=== PATIENT | male | born 1950 | race Caucasian/White ===

== ENCOUNTER → 2016-06-18 | Outpatient (CLI) | payer MEDICARE, OTHER ==
[~2016-06-18] MED LIST: /ADVA50050; ADV250INH INH; ASPI1TAB PO; DARV100T; DHEA50CA4 PO; ECOT325T5; FEOSOL; FURO40TA2; IBUP800T23 PO; LEVO750T33 PO; MEGA RED; MUCINEX DM; NEXI20CA; NEXI20CA PO; POTA20TA2; PRED10TA PO; PROP10TAB; PROP80TA PO; TIOT18INH INH; TRAM37.53 PO; dhea
--- NOTE | 2016-06-18 13:33 | REP ---
CHEST, TWO VIEW: Two views of the chest is performed and compared to a prior study of 11/08/2015. Significant bibasilar fibrotic change is stable. No definite superimposed acute infiltrate is seen. There is mild biapical pleural thickening. The heart is not significantly enlarged. There is mild calcification of the thoracic aorta. The mediastinal silhouette is unchanged. There is elevation of the right hemidiaphragm unchanged. There are mild degenerative changes of the spine. IMPRESSION: Stable chronic fibrotic changes with no evidence of acute infiltrate or pulmonary edema. Signed by Mehdi Shrestha MD 06/18/2016 05:04 P
== END | disposition home or self-care (01) ==
LOC: M SMT 11:32
PROVIDERS: ATTEND Internal Medicine Pulmonary Disease
DX: J44.9 Chronic obstructive pulmonary disease, unspecified (principal); J98.4 Other disorders of lung

== ENCOUNTER → 2016-12-06 | Outpatient (CLI) | payer MEDICARE, OTHER ==
[~2016-12-06] MED LIST changes: +ALBU83IN INH; +ATOR1TAB21 PO; +AVEL1TAB3 PO; +CEFT500T3 PO; +CIAL5TAB PO; +COMBAER6 INH; +GABA-279 PO; +GABA-283 PO; +IBUP1TAB7 PO; -IBUP800T23 PO; +INCR1INH INH; +LEVO750T13 PO; -LEVO750T33 PO; +LOSA25TA8 PO; +NEBUMIS2 XX; +PRED20TA PO; +PROP80CA PO; +SELE200T PO; +VITA400C7 PO
--- NOTE | 2016-12-06 12:29 | REP ---
CT STUDY OF THE CHEST WITHOUT IV CONTRAST: HISTORY: COPD. Comparison chest CT study is from February 01, 2015. CT FINDINGS: There are advanced changes of COPD with interstitial fibrosis most pronounced in the lower lobes but also extensively seen in the upper lobes with emphysematous bullous formation and some scattered bronchiectasis. These findings are essentially unchanged. There are some linear fibrotic changes again noted in the right upper lobe. There is a 13 x 6 mm elongate nodular density in the right upper lobe again seen. Previous dimensions were measured at 5 x 11 mm but I do not believe this has changed. No new infiltrate is seen. No pleural or pericardial effusion is seen. No hilar or mediastinal mass or adenopathy is observed. Vascular calcification is again seen. No adrenal lesion is seen. There are granulomatous calcifications scattered in the spleen as before. IMPRESSION: Severe COPD changes. Stable nodular soft tissue density right upper lobe. Current dimensions 6 x 13 mm. Signed by Sean Arambula MD 12/06/2016 12:58 P
== END ==
LOC: M RAD 10:47
PROVIDERS: ATTEND Internal Medicine Pulmonary Disease
DX: J44.9 Chronic obstructive pulmonary disease, unspecified (principal); R91.8 Other nonspecific abnormal finding of lung field

== ENCOUNTER → 2017-02-07 | Outpatient (CLI) | payer MEDICARE, OTHER ==
--- NOTE | 2017-02-07 11:15 | REP ---
Clinical: Multiple cerebral infarcts and history of carotid atherosclerotic disease by prior examination. Technique: Shrestha scale and color Doppler evaluation using linear high frequency transducer. Comparison: 03/10/2015 Findings: Two-dimensional shrestha scale and color images demonstrate a moderate amount of mixed atheromatous plaque along the bilateral common carotid arteries extending to the carotid bulbs and proximal internal carotid arteries (right greater than left). Visible narrowing through the carotid bulbs, internal carotid arteries (right greater than left) and left external carotid artery are appreciated. Color Doppler interrogation demonstrates normal arterial wave patterns and velocities with areas of mild spectral broadening. Normal flow direction is appreciated in the bilateral vertebral arteries. RIGHT (cm/s) LEFT (cm/s) ICA peak systolic velocity 73.6 74.7 ICA diastolic velocity 17.5 32.0 ECA peak systolic velocity 104.0 113 CCA peak systolic velocity 91.5 105 ICA/CCA ratio 0.80 0.71 Impression: 1. Based on set standards narrowing again falls within the less than 50% range, and subjectively by visual inspection approaches 50% in the right proximal internal carotid artery as well as left external carotid artery. 2. In direct comparison with prior examination of 2014, atheromatous plaquing appears to be slightly increased. Signed by Uvaldo Hart MD 02/07/2017 11:06 A
== END ==
LOC: M RAD 09:25
PROVIDERS: ATTEND Physician Assistant Medical
DX: I65.23 Occlusion and stenosis of bilateral carotid arteries (principal)

== ENCOUNTER 2017-03-27 14:08 | Emergency (ER) | payer MEDICARE, OTHER ==
[~2017-03-27] VITALS: Ht 172.7 cm; Wt 73.8 kg
[~2017-03-27 14:08] MED LIST changes: -ALBU83IN INH; -ATOR1TAB21 PO; -AVEL1TAB3 PO; -CEFT500T3 PO; -CIAL5TAB PO; -COMBAER6 INH; -GABA-279 PO; -GABA-283 PO; -INCR1INH INH; -LOSA25TA8 PO; -NEBUMIS2 XX; -PRED20TA PO; -PROP80CA PO; -SELE200T PO; -VITA400C7 PO
[2017-03-27] MEDS ORDERED: CIAL5TAB PO (14:34)
[2017-03-27] MEDS ORDERED: COMBAER6 INH (14:34)
[2017-03-27] MEDS ORDERED: LOSA25TA8 PO (14:34)
[2017-03-27] MEDS ORDERED: INCR1INH INH (14:34)
[2017-03-27] MEDS ORDERED: ATOR1TAB21 PO (14:34)
[2017-03-27] MEDS ORDERED: GABA-283 PO (14:34)
[2017-03-27 15:12] LABS: ABG BASE EXCESS -4.2 (-2.0-2.0); ABG HCO3 18.4 MEQ/L (22.0-26.0); ABG PARTIAL PRESSURE CO2 27.7 mmHg (35.0-45.0); ABG PARTIAL PRESSURE O2 76.6 mmHg (75.0-100.0); ABG STANDARD HCO3 20.9 MEQ/L (22.0-26.0); ABG TOTAL CO2 19.3 MEQ/L (23.0-31.0); ABG pH (ARTERIAL) 7.441 UNITS (7.350-7.450)
[2017-03-27] MEDS ORDERED: IPRATROPIUM 0.5MG/ALBUTEROL 2.5MG INH SOL UD 3ML (DUONEB)(J7620) NEB PRN (15:15)
[2017-03-27] MEDS ORDERED: methylPREDNISolone INJ 125 MG/2 ML VIAL (J2930) IV ONE (15:15)
--- NOTE | 2017-03-27 15:22 | REP ---
PORTABLE CHEST: AP portable view of the chest is performed and compared to prior study of 06/18/2016. Significant bibasilar fibrotic changes appear essentially stable. There is no definite superimposed acute infiltrate. There is a more mild degree of fibrotic change in the upper lobes bilaterally. The cardiomediastinal silhouette is unchanged. IMPRESSION: Stable chronic findings without evidence of superimposed acute infiltrate. Signed by Mehdi Shrestha MD 03/28/2017 07:26 P
[2017-03-27 15:56] LABS: BASO % 0.2 % (0.0-1.0); EOS # 0.3 10^3/uL (0.0-0.50); EOS % 2.3 % (0.0-3.0); IMMATURE GRANULOCYTE % 0.3 % (0-0); LYMPH # 1.5 10^3/uL (1.5-4.5); LYMPH % 12.1 % (24.0-44.0); MEAN CORPUSCULAR HEMOGLOBIN 28.9 pg (27.0-33.0); MEAN CORPUSCULAR HGB CONC 34.4 g/dl (32.0-36.5); MONO # 1.1 10^3/uL (0.0-0.8); NEUTROPHILS # 9.5 10^3/uL (1.8-7.7); NEUTROPHILS % 76.1 % (36.0-66.0); PLATELET COUNT, AUTOMATED 313 10^3/uL (150-450); RED CELL DISTRIBUTION WIDTH 13.8 % (11.5-14.5); WHITE BLOOD COUNT 12.4 10^3/uL (4.0-10.0)
[2017-03-27 16:07] LABS: INR 0.99
[2017-03-27] MEDS ORDERED: LEVALBUTEROL 1.25 MG/0.5 ML CONCENTRATE NEB NEB PRN (16:30)
[2017-03-27 16:40] LABS: ALBUMIN 3.5 GM/DL (3.2-5.2); ALBUMIN/GLOBULIN RATIO 0.85 (1.00-1.93); ALKALINE PHOSPHATASE 112 U/L (45-117); ALT/SGPT 20 U/L (12-78); ANION GAP 8 MEQ/L (8-16); AST/SGOT 17 U/L (7-37); BILIRUBIN,DIRECT 0.1 MG/DL (0.0-0.2); BILIRUBIN,TOTAL 0.4 MG/DL (0.2-1.0); BLOOD UREA NITROGEN 13 MG/DL (7-18); CARBON DIOXIDE LEVEL 25 MEQ/L (21-32); CHLORIDE LEVEL 91 MEQ/L (98-107); CREATININE FOR GFR 0.82 MG/DL (0.70-1.30); GLOMERULAR FILTRATION RATE > 60.0 (>49); GLUCOSE, FASTING 102 MG/DL (80-110); POTASSIUM SERUM 4.5 MEQ/L (3.5-5.1); SODIUM LEVEL 124 MEQ/L (136-145); TOTAL PROTEIN 7.6 GM/DL (6.4-8.2)
[2017-03-27] MEDS ORDERED: VITA400C7 PO (17:02)
[2017-03-27] MEDS ORDERED: GABA-279 PO (17:02)
[2017-03-27] MEDS ORDERED: SELE200T PO (17:02)
[2017-03-27] MEDS ORDERED: PROP80CA PO (17:02)
[2017-03-27] MEDS ORDERED: AVEL1TAB3 PO (17:10)
[2017-03-27] MEDS ORDERED: ALBU83IN INH (17:10)
[2017-03-27] MEDS ORDERED: PRED20TA PO (17:10)
[2017-03-27] MEDS ORDERED: NEBUMIS2 XX (17:11)
[2017-03-27] MEDS ORDERED: CEFT500T3 PO (17:18)
[2017-03-27] MEDS ORDERED: AZITHROMYCIN INJ 500 MG, VIAL MATE ADAPTER 1 EACH in D5W 250 ML IV SCH (18:00)
[2017-03-27 18:08] VITALS: BP 167/75
[2017-03-27] MEDS ORDERED: LEVALBUTEROL 1.25 MG/0.5 ML CONCENTRATE NEB NEB SCH (20:00)
[2017-03-28] MEDS ORDERED: methylPREDNISolone INJ 125 MG/2 ML VIAL (J2930) IV SCH
[2017-03-28] MEDS ORDERED: PANTOPRAZOLE 40MG TAB (PROTONIX) PO SCH (09:00)
--- NOTE | 2017-03-28 11:24 | ECGEPIP ---
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
== END 2017-03-27 18:10 | disposition home or self-care (01) ==
LOC: M ED 14:08 → M ED INP 16:28 → UNDOADMIN 16:28 → UNDODISIN 17:30
DX: J44.9 Chronic obstructive pulmonary disease, unspecified (principal); J40 Bronchitis, not specified as acute or chronic; E87.1 Hypo-osmolality and hyponatremia; I27.20 Pulmonary hypertension, unspecified; E78.5 Hyperlipidemia, unspecified; Z79.82 Long term (current) use of aspirin; Z79.899 Other long term (current) drug therapy; Z91.041 Radiographic dye allergy status; Z88.5 Allergy status to narcotic agent; Z91.040 Latex allergy status; Z85.118 Personal history of other malignant neoplasm of bronchus and lung; Z98.890 Other specified postprocedural states; Z92.21 Personal history of antineoplastic chemotherapy
CPT/HCPCS: 36600; 71010; 80048; 80076; 82550; 82553; 82803; 83605; 83880; 84436; 84443; 84484; 85025; 85610; 87040; 87486; 87581; 87633; 87798; 87804; 93005; 93041; 94640; 96374; 99285; J2930

== ENCOUNTER → 2017-07-09 | Outpatient (CLI) | payer MEDICARE, OTHER | LOC: M SMT 11:26 | DX: J84.10 Pulmonary fibrosis, unspecified (principal); J44.9 Chronic obstructive pulmonary disease, unspecified; R91.8 Other nonspecific abnormal finding of lung field | CPT/HCPCS: 71046 ==

== ENCOUNTER 2017-09-04 11:55 | Outpatient (RCR) | payer MEDICARE, OTHER | END 2017-09-23 | LOC: M PR 11:55 | DX: Z51.89 Encounter for other specified aftercare (principal); J84.112 Idiopathic pulmonary fibrosis | CPT/HCPCS: G0424 ==

== ENCOUNTER 2017-09-26 14:32 | Outpatient (RCR) | payer MEDICARE, OTHER | END 2017-10-24 | LOC: M PR 14:32 | DX: Z51.89 Encounter for other specified aftercare (principal); J84.112 Idiopathic pulmonary fibrosis | CPT/HCPCS: G0424 ==

== ENCOUNTER 2017-10-28 12:22 | Outpatient (RCR) | payer MEDICARE, OTHER | END 2017-11-23 | LOC: M PR 12:22 | DX: Z51.89 Encounter for other specified aftercare (principal); J84.112 Idiopathic pulmonary fibrosis | CPT/HCPCS: G0424 ==

== ENCOUNTER 2017-11-25 13:12 | Outpatient (RCR) | payer MEDICARE, OTHER | END 2017-12-24 | LOC: M PR 13:12 | DX: Z51.89 Encounter for other specified aftercare (principal); J84.112 Idiopathic pulmonary fibrosis | CPT/HCPCS: G0424 ==

== ENCOUNTER 2017-12-30 10:03 | Outpatient (RCR) | payer MEDICARE, OTHER | END 2018-01-24 | LOC: M PR 10:03 | DX: J84.112 Idiopathic pulmonary fibrosis (principal) | CPT/HCPCS: G0424 ==

== ENCOUNTER 2018-02-06 11:16 | Outpatient (RCR) | payer MEDICARE, OTHER | END 2018-02-23 | LOC: M PR 11:16 | DX: Z51.89 Encounter for other specified aftercare (principal); J84.112 Idiopathic pulmonary fibrosis | CPT/HCPCS: G0424 ==

== ENCOUNTER 2018-08-18 13:30 | Outpatient (RCR) | payer MEDICARE, OTHER ==
[~2018-08-18 13:30] MED LIST changes: +ALBU83IN INH; +APAP325T4 PO; +ATOR1TAB21 PO; +AVEL1TAB3 PO; +AZIT-10; +AZIT-12 PO; +BACT400T PO; +BETA2500 PO; +CEFT500T3 PO; +CENT1TAB PO; +CIAL5TAB PO; +COMBAER6 INH; +ECHI380C PO; +FOLI800C PO; +GABA-1171 PO; +GABA-845 PO; +IMUR50TA7 PO; +INCR1INH INH; +LASI20TA3 PO; +LOPR1TAB6 PO; +LOSA25TA14 PO; +MAGN200T PO; +MUCI30TA5 PO; +NEBUMIS2 XX; +NEUR100C PO; +PRED20TA PO; +PRED5PAK PO; +PROP80CA PO; +PROTPAK PO; +SELE200T PO; +TACR0.5C3 PO; +TUMS500C PO; +VALG1TAB PO; +VITA-110 PO; +VITA400C7 PO; +VITA500T PO; +ZOFR8TAB24 PO; +[UNRECOGNIZED DRUG - OTHER]
== END 2018-08-24 ==
LOC: M PR 13:30
PROVIDERS: ATTEND Internal Medicine Pulmonary Disease
DX: Z94.2 Lung transplant status (principal)
CPT/HCPCS: G0424 ×4

== ENCOUNTER 2018-09-15 12:52 | Outpatient (RCR) | payer MEDICARE, OTHER ==
[~2018-09-15 12:52] MED LIST changes: -/ADVA50050; +ADVA1AER2; -ASPI1TAB PO; +ASPI81TA26 PO; +IMUR50TA10 PO; -IMUR50TA7 PO; +PRED-351 PO; -PRED10TA PO
== END 2018-09-23 ==
LOC: M PR 12:52
PROVIDERS: ATTEND Internal Medicine Pulmonary Disease
DX: Z94.2 Lung transplant status (principal)
CPT/HCPCS: G0424 ×4

== ENCOUNTER 2018-09-25 09:34 | Outpatient (RCR) | payer MEDICARE, OTHER | END 2018-10-24 | LOC: M PR 09:34 | PROVIDERS: ATTEND Internal Medicine Pulmonary Disease | DX: Z94.2 Lung transplant status (principal) ==

== ENCOUNTER 2018-10-03 14:27 | Emergency (ER) | payer MEDICARE, OTHER ==
[~2018-10-03] VITALS: Ht 172.7 cm; Wt 79.1 kg
[2018-10-03 16:03] LABS: HEMOGLOBIN 8.9 g/dl (13.5-17.5); MEAN CORPUSCULAR HEMOGLOBIN 32.7 pg (27.0-33.0); MEAN CORPUSCULAR VOLUME 99.3 fl (80.0-96.0); PLATELET COUNT, AUTOMATED 284 10^3/uL (150-450); RED BLOOD COUNT 2.72 10^6/uL (4.30-6.10); WHITE BLOOD COUNT 4.2 10^3/uL (4.0-10.0)
[2018-10-03 16:20] LABS: INR 0.97
[2018-10-03 16:24] LABS: ALBUMIN 3.4 GM/DL (3.2-5.2); ALT/SGPT 32 U/L (12-78); BILIRUBIN,DIRECT < 0.1 MG/DL (0.0-0.2); BILIRUBIN,TOTAL 0.3 MG/DL (0.2-1.0); BLOOD UREA NITROGEN 31 MG/DL (7-18); CALCIUM LEVEL 8.3 MG/DL (8.8-10.2); CARBON DIOXIDE LEVEL 21 MEQ/L (21-32); CHLORIDE LEVEL 101 MEQ/L (98-107); CPK CREATINE PHOSPHOKINASE 61 U/L (39-308); CREATININE FOR GFR 1.82 MG/DL (0.70-1.30); GLOMERULAR FILTRATION RATE 39.5 (>49); GLUCOSE, FASTING 159 MG/DL (70-100); MB/CK RELATIVE INDEX 2.79 (< OR =4); NT-PRO BNP 1621 PG/ML (<125); POTASSIUM SERUM 5.3 MEQ/L (3.5-5.1); SODIUM LEVEL 130 MEQ/L (136-145); TOTAL PROTEIN 6.5 GM/DL (6.4-8.2); TROPONIN I < 0.02 NG/ML (< 0.10)
[2018-10-03 16:48] LABS: ABG BASE EXCESS -6.6 (-2.0-2.0); ABG O2 SATURATION 98.4 % (95.0-99.0); ABG PARTIAL PRESSURE CO2 32.3 mmHg (35.0-45.0); ABG PARTIAL PRESSURE O2 217.2 mmHg (75.0-100.0); ABG pH (ARTERIAL) 7.363 UNITS (7.350-7.450)
[2018-10-03 16:51] LABS: ATYPICAL LYMPH 1 % (0-5); LYMPHOCYTES 14 % (16-52); METAMYELOCYTES 1 % (0-0); NEUTROPHILS 79 % (35-75)
[2018-10-03 16:52] LABS: DOHLE BODIES 1+
[2018-10-03 16:54] LABS: PLATELET ESTIMATE NORMAL (NORMAL)
--- NOTE | 2018-10-03 17:10 | REP ---
CT CHEST WITHOUT IV CONTRAST: CT chest performed without IV contrast. Sagittal and coronal reconstruction images are performed. There are scattered fibroatelectatic changes bilaterally without consolidating infiltrate. Multiple sternal wires and mediastinal clips are present. No axillary or mediastinal adenopathy is seen. There is mild left-sided pleural thickening. No significant pericardial or pleural effusion is seen. Heart is upper limits of normal in size. There is calcification of the thoracic aorta without aneurysm. Coronary artery calcifications are seen. A couple of small gallstones are seen in the gallbladder. Calcified granulomas are seen in the spleen. There are degenerative changes of the spine. IMPRESSION: Bilateral fibroatelectatic changes. Postsurgical changes. No acute pulmonary disease. Electronically Signed by Mehdi Shrestha MD 10/08/2018 11:47 A
[2018-10-03 17:58] LABS: BASO % 0.5 % (0.0-1.0); EOS % 0.2 % (0.0-3.0); LYMPH # 0.5 10^3/uL (1.5-4.5); LYMPH % 10.8 % (24.0-44.0); MONO # 0.1 10^3/uL (0.0-0.8); NEUTROPHILS # 2.8 10^3/uL (1.8-7.7); NEUTROPHILS % 66.5 % (36.0-66.0)
[2018-10-03 18:03] LABS: FERRITIN 980 NG/ML (26-388); IRON (FE) 30 UG/DL (65-175); PERCENT SATURATION 7.1 % (19.7-50.0); TOTAL IRON BINDING CAPACITY 420 UG/DL (250-450)
[2018-10-03 18:30] VITALS: BP 148/70
--- NOTE | 2018-10-03 19:24 | ECGEPIP ---
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
== END 2018-10-03 18:55 | disposition left against medical advice (07) ==
LOC: M ED 14:27
DX: D64.9 Anemia, unspecified (principal); N18.9 Chronic kidney disease, unspecified; R06.00 Dyspnea, unspecified; I27.20 Pulmonary hypertension, unspecified; J44.9 Chronic obstructive pulmonary disease, unspecified; Z79.82 Long term (current) use of aspirin; Z79.51 Long term (current) use of inhaled steroids; Z79.899 Other long term (current) drug therapy; Z87.891 Personal history of nicotine dependence; Z94.2 Lung transplant status; Z88.5 Allergy status to narcotic agent; Z91.040 Latex allergy status; Z91.041 Radiographic dye allergy status; Z53.21 Procedure and treatment not carried out due to patient leaving prior to being seen by health care provider

== ENCOUNTER → 2018-10-03 | Outpatient (CLI) | payer MEDICARE, OTHER ==
--- NOTE | 2018-10-03 11:39 | REP ---
Chest x-ray: Two views. History: Shortness of breath. Comparison chest x-ray: July 09, 2017. Findings: The patient is status post prior sternotomy. There are mediastinal clips bilaterally. Post thoracotomy changes are noted on the right. Pleural thickening is noted bilaterally. The previously noted interstitial edema/infiltrate pattern has resolved. Mild fibrotic changes are noted. The heart is not enlarged. The pleural angles are sharp. Impression: Post thoracotomy changes. Pleuroparenchymal fibrosis. Otherwise no acute disease. Electronically Signed by Sean Arambula MD 10/03/2018 02:47 P
== END ==
LOC: M SMT 10:55
PROVIDERS: ATTEND Internal Medicine Pulmonary Disease
DX: J84.10 Pulmonary fibrosis, unspecified (principal); R06.02 Shortness of breath

== ENCOUNTER 2018-11-17 13:31 | Outpatient (RCR) | payer MEDICARE, OTHER | END 2018-11-23 | LOC: M PR 13:31 | PROVIDERS: ATTEND Internal Medicine Pulmonary Disease | DX: Z94.2 Lung transplant status (principal) | CPT/HCPCS: G0424 ×5 ==

== ENCOUNTER 2018-12-07 01:27 | Emergency (ER) | payer OTHER, MEDICARE ==
[~2018-12-07] VITALS: Ht 172.7 cm; Wt 72.1 kg
[2018-12-07 02:12] LABS: HEMATOCRIT 23.8 % (42.0-52.0); HEMOGLOBIN 8.3 g/dl (13.5-17.5); LYMPH # 0.3 10^3/uL (1.5-4.5); LYMPH % 39.1 % (24.0-44.0); MEAN CORPUSCULAR HEMOGLOBIN 32.4 pg (27.0-33.0); MEAN CORPUSCULAR HGB CONC 34.9 g/dl (32.0-36.5); MONO % 5.8 % (0.0-5.0); PLATELET COUNT, AUTOMATED 192 10^3/uL (150-450); RED BLOOD COUNT 2.56 10^6/uL (4.30-6.10)
[2018-12-07 02:15] LABS: NEUTROPHILS # 0.3 10^3/uL (1.8-7.7); WHITE BLOOD COUNT 0.7 10^3/uL (4.0-10.0)
[2018-12-07] MEDS ORDERED: IPRATROPIUM 0.5MG/ALBUTEROL 2.5MG INH SOL UD 3ML (DUONEB)(J7620) NEB ONE (02:15)
[2018-12-07 02:36] LABS: BLOOD UREA NITROGEN 42 MG/DL (7-18); CALCIUM LEVEL 8.3 MG/DL (8.8-10.2); CARBON DIOXIDE LEVEL 21 MEQ/L (21-32); CHLORIDE LEVEL 95 MEQ/L (98-107); CK-MB VALUE MASS 1.8 NG/ML (<3.6); CPK CREATINE PHOSPHOKINASE 37 U/L (39-308); CREATININE FOR GFR 3.23 MG/DL (0.70-1.30); GLOMERULAR FILTRATION RATE 20.3 (>42); GLUCOSE, FASTING 98 MG/DL (70-100); MB/CK RELATIVE INDEX 4.86 (< OR =4); NT-PRO BNP 2563 PG/ML (<125); POTASSIUM SERUM 5.3 MEQ/L (3.5-5.1); SODIUM LEVEL 126 MEQ/L (136-145); TROPONIN I < 0.02 NG/ML (< 0.10)
--- NOTE | 2018-12-07 04:13 | REPVR ---
EXAM: CT Chest Without Contrast EXAM DATE/TIME: 12/07/2018 3:14 AM CLINICAL HISTORY: 68 years old, male; Cough and shortness of breath; Prior surgery; Surgery date: 6+ months; Surgery type: Double lung transplant mar 2018; Additional info: SOB, cough TECHNIQUE: Imaging protocol: Axial computed tomography images of the chest without intravenous contrast. Coronal and sagittal reformatted images were created and reviewed. 3D rendering: MIP reconstructed images were created and reviewed. Radiation optimization: All CT scans at this facility use at least one of these dose optimization techniques: automated exposure control; mA and/or kV adjustment per patient size (includes targeted exams where dose is matched to clinical indication); or iterative reconstruction. COMPARISON: CT Chest without contrast 10/03/2018 3:11 PM FINDINGS: Lungs: No minimal left upper lobe, lingular, right lower lobe and right middle lobe fibro-atelectatic change with mild left lower lobe atelectasis and minimal patchy infiltrates. Pleural space: Trace left pleural effusion. Heart: Unremarkable. No cardiomegaly. No pericardial effusion. Aorta: Unremarkable. No aortic aneurysm. Lymph nodes: Unremarkable. No enlarged lymph nodes. Bones/joints: Status post clamshell sternotomy. Soft tissues: Unremarkable. Gallbladder and bile ducts: There is a gallstone in the gallbladder measuring 6 mm. Spleen: Splenic calcifications. IMPRESSION: 1. Mild left lower lobe atelectasis and patchy infiltrate with trace left pleural effusion. 2. Minimal fibro-atelectatic change in the left upper lobe, lingula, right middle lobe and right lower lobe. 3. Minimal cholelithiasis. 4. Old granulomatous disease of the spleen. Electronically signed by: Richi Esquivel On 12/07/2018 04:12:40 AM
[2018-12-07] MEDS ORDERED: PIPERACILLIN/TAZOBACTAM SOD 2.25 GM in D5W MINI-BAG PLUS 50 ML IV ONE (05:15)
[2018-12-07] MEDS ORDERED: VANCOMYCIN HCL 1,000 MG, VIAL MATE ADAPTER 1 EACH in D5W 250 ML IV ONE (05:15)
--- NOTE | 2018-12-07 09:08 | REP ---
Portable chest x-ray: Single view. History: Dyspnea and cough. Comparison study: October 03, 2018. Findings: Sternal fracture fixation wires are again seen over the inferior sternum. There are surgical clips in the left chest post thoracotomy. Oxygen delivery tubing is seen. There is mild biapical pleural thickening which is unchanged. Bibasilar linear pleuroparenchymal fibrosis is seen also unchanged. No acute infiltrate is appreciated. Heart size is normal and unchanged. Impression: Posttraumatic and/or postsurgical changes. Bibasilar fibrosis. No acute infiltrate seen. Electronically Signed by Sean Arambula MD 12/07/2018 09:40 A
[2018-12-07] MEDS ORDERED: ACETAMINOPHEN TAB 650MG DOSE (2X325MG) PO ONE (10:00)
[2018-12-07] MEDS ORDERED: ACETAMINOPHEN TAB 650MG DOSE (2X325MG) As Ordered ONE (10:00)
[2018-12-07 10:54] VITALS: BP 126/61
--- NOTE | 2018-12-08 17:08 | ECGEPIP ---
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 Electronically Signed on 12-08-2018 17:07:53 EDT by Dav Valerio
== END 2018-12-07 11:01 | disposition short-term general hospital (02) ==
LOC: M ED 01:27
DX: J18.9 Pneumonia, unspecified organism (principal); J90 Pleural effusion, not elsewhere classified; B97.89 Other viral agents as the cause of diseases classified elsewhere; D70.3 Neutropenia due to infection; A41.89 Other specified sepsis; Z85.118 Personal history of other malignant neoplasm of bronchus and lung; Z94.2 Lung transplant status; N17.9 Acute kidney failure, unspecified; Z88.5 Allergy status to narcotic agent; Z91.040 Latex allergy status; Z91.041 Radiographic dye allergy status; Z79.899 Other long term (current) drug therapy; Z79.82 Long term (current) use of aspirin; Z79.52 Long term (current) use of systemic steroids
CPT/HCPCS: 71045; 71250; 80048; 80197; 82550; 82553; 83605; 83880; 84484; 85025; 87040; 87486; 87581; 87633; 87798; 93005; 94640; 94760; 96365; 96366; 96368; 99285; J2543; J3370

== ENCOUNTER 2018-12-22 12:45 | Outpatient (RCR) | payer OTHER ==
[2018-12-24] MEDS ORDERED: AZIT-12 PO (13:24)
[2018-12-24] MEDS ORDERED: ALLE180T33 PO (16:30)
[2018-12-24] MEDS ORDERED: COMBAER6 INH (16:46)
== END 2018-12-24 ==
LOC: M PR 12:45
PROVIDERS: ATTEND Internal Medicine Pulmonary Disease
DX: Z94.2 Lung transplant status (principal)
CPT/HCPCS: G0424 ×2

== ENCOUNTER 2018-12-24 13:16 | Emergency (ER) | payer MEDICARE, OTHER ==
[~2018-12-24] VITALS: Ht 172.7 cm; Wt 71.8 kg
[~2018-12-24 13:16] MED LIST changes: -ALLE180T33 PO
[2018-12-24] MEDS ORDERED: AZIT-12 PO (13:24)
[2018-12-24] MEDS ORDERED: IPRATROPIUM 0.5MG/ALBUTEROL 2.5MG INH SOL UD 3ML (DUONEB)(J7620) NEB ONE (14:00)
[2018-12-24 14:33] LABS: VENOUS BASE EXCESS -2.5 (-2.0-2.0); VENOUS HCO3 23.6 MEQ/L (23.0-27.0); VENOUS O2 SATURATION 64.2 % (60.0-80.0); VENOUS PARTIAL PRESSURE CO2 46.8 mmHg (38.0-50.0); VENOUS PARTIAL PRESSURE O2 37.2 mmHg (30.0-50.0); VENOUS PH 7.321 UNITS (7.330-7.430); VENOUS STANDARD HCO3 21.8 MEQ/L; VENOUS TOTAL CO2 25.1 MEQ/L (24.0-28.0)
[2018-12-24 15:07] LABS: ALBUMIN 3.5 GM/DL (3.2-5.2); ALT/SGPT 44 U/L (12-78); BILIRUBIN,DIRECT 0.2 MG/DL (0.0-0.2); BILIRUBIN,TOTAL 0.5 MG/DL (0.2-1.0); BLOOD UREA NITROGEN 26 MG/DL (7-18); CALCIUM LEVEL 8.7 MG/DL (8.8-10.2); CARBON DIOXIDE LEVEL 26 MEQ/L (21-32); CHLORIDE LEVEL 99 MEQ/L (98-107); CK-MB VALUE MASS 1.9 NG/ML (<3.6); CPK CREATINE PHOSPHOKINASE 56 U/L (39-308); CREATININE FOR GFR 1.47 MG/DL (0.70-1.30); GLOMERULAR FILTRATION RATE 50.4 (>42); GLUCOSE, FASTING 107 MG/DL (70-100); MB/CK RELATIVE INDEX 3.39 (< OR =4); NT-PRO BNP 1328 PG/ML (<125); POTASSIUM SERUM 5.2 MEQ/L (3.5-5.1); SODIUM LEVEL 131 MEQ/L (136-145); TOTAL PROTEIN 6.5 GM/DL (6.4-8.2); TROPONIN I < 0.02 NG/ML (< 0.10)
[2018-12-24 16:00] VITALS: BP 163/79
[2018-12-24] MEDS ORDERED: ALLE180T33 PO (16:30)
[2018-12-24] MEDS ORDERED: COMBAER6 INH (16:46)
--- NOTE | 2018-12-24 19:58 | ECGEPIP ---
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
--- NOTE | 2018-12-25 07:28 | REP ---
Clinical: Cough and dyspnea. Technique: Axial noncontrast images from the thoracic inlet to the upper abdomen with coronal and sagittal re-formations. Comparison: 12/07/2018, 10/03/2018, 12/06/2016. Findings: Chronic linear scarring in the left upper lung zone and and postsurgical changes involving the left hemithorax consistent with prior lobectomy again noted. Mild bibasilar scarring is also appreciated and stable. Recently noted left lower lobe infiltrate has resolved. No acute consolidation, or effusion is appreciated. No pneumothorax. No significant nodule or mass lesion. Tracheobronchial tree is relatively patent. No obvious adenopathy. Atherosclerotic changes to the thoracic aorta and coronary arteries noted without aortic aneurysm or cardiomegaly. No pericardial effusion. Surrounding osseous structures demonstrate age-related degenerative changes. Upper abdomen demonstrates normal bilateral adrenal glands along with small gallstones. Impression: 1. No acute mediastinal or pleuroparenchymal process appreciated. 2. Recently identified left lower lobe infiltrate has resolved. 3. Chronic stable changes. Electronically Signed by Uvaldo Hart MD 12/24/2018 02:51 P
== END 2018-12-24 16:58 | disposition home or self-care (01) ==
LOC: M ED 13:16
DX: J01.90 Acute sinusitis, unspecified (principal); I51.9 Heart disease, unspecified; E11.9 Type 2 diabetes mellitus without complications; Z86.73 Personal history of transient ischemic attack (TIA), and cerebral infarction without residual deficits; J98.9 Respiratory disorder, unspecified; Z94.2 Lung transplant status; Z87.891 Personal history of nicotine dependence; Z79.82 Long term (current) use of aspirin; Z79.4 Long term (current) use of insulin; Z91.041 Radiographic dye allergy status; Z91.040 Latex allergy status; Z88.5 Allergy status to narcotic agent
CPT/HCPCS: 71250; 80048; 80076; 82550; 82553; 82803; 83880; 84484; 87040; 93005; 93041; 94640; 99284; G0463

== ENCOUNTER → 2018-12-24 | Outpatient (CLI) | payer OTHER ==
[~2018-12-24] MED LIST changes: +ALLE180T33 PO
--- NOTE | 2018-12-24 12:16 | REP ---
Clinical: Cough. Technique: PA and lateral. Comparison: 12/07/2018, 10/03/2018. Findings: Chronic pleuroparenchymal changes involving the bilateral mid to lower lobes (right greater than left) remain essentially unchanged. 12/07/2018 demonstrated left lower lobe infiltrate which cannot be excluded on current examination. Evidence of prior sternotomy. The cardiac silhouette is within normal limits and stable. The skeletal structures are intact. No pneumothorax. Impression: Stable bilateral pleuroparenchymal changes. Continued subtle left lower lobe infiltrate cannot be excluded. Electronically Signed by Uvaldo Hart MD 12/24/2018 12:08 P
[2018-12-24 14:21] LABS: HEMATOCRIT 29.7 % (42.0-52.0); HEMOGLOBIN 9.9 g/dl (13.5-17.5); MEAN CORPUSCULAR HEMOGLOBIN 32.5 pg (27.0-33.0); MEAN CORPUSCULAR HGB CONC 33.3 g/dl (32.0-36.5); MEAN CORPUSCULAR VOLUME 97.4 fl (80.0-96.0); PLATELET COUNT, AUTOMATED 227 10^3/uL (150-450); RED BLOOD COUNT 3.05 10^6/uL (4.30-6.10); WHITE BLOOD COUNT 5.4 10^3/uL (4.0-10.0)
[2018-12-24 14:28] LABS: CALCIUM LEVEL 9.1 MG/DL (8.8-10.2); CREATININE FOR GFR 1.4 MG/DL (0.70-1.30); GLOMERULAR FILTRATION RATE 53.3 (>42); POTASSIUM SERUM 5.2 MEQ/L (3.5-5.1)
[2018-12-24 14:54] LABS: LYMPHOCYTES 8 % (16-52); MONOCYTES 8 % (0-8); NEUTROPHILS 84 % (35-75); PLATELET ESTIMATE NORMAL (NORMAL)
[2018-12-24 14:57] LABS: ANISOCYTOSIS 1+
[2018-12-24 14:59] LABS: POIKILOCYTOSIS 1+
[2018-12-24 15:00] LABS: TEAR DROP CELLS 1+
== END ==
LOC: M SMT 11:54
PROVIDERS: ATTEND Family Medicine
DX: R05 Cough (principal)

== ENCOUNTER 2019-01-22 13:05 | Outpatient (RCR) | payer OTHER, MEDICARE ==
[~2019-01-22 13:05] MED LIST changes: +ALLE180T33 PO
== END 2019-01-24 ==
LOC: M PR 13:05
PROVIDERS: ATTEND Internal Medicine Pulmonary Disease
DX: Z94.2 Lung transplant status (principal)
CPT/HCPCS: G0424 ×6

== ENCOUNTER → 2019-02-06 | Outpatient (CLI) | payer MEDICARE, OTHER ==
--- NOTE | 2019-02-06 10:28 | REP ---
CT of the cervical spine without contrast Indication: Cervical pain. Comparison: None Technique: Axial CT of the cervical spine was performed without contrast. Bone reformatted images were provided in the axial, coronal and sagittal planes. Findings: There is no acute fracture or subluxation of the cervical spine. The craniocervical junction is intact. Vertebral body heights are maintained. There is cervical spondylosis as evidenced by multilevel facet joint hypertrophy. There is disc osteophyte complex formation and C4-C5. The CT appearance of the spinal canal is within normal limits. The paraspinal soft tissues are within normal limits. Note is made of cervical carotid artery calcification. There is no apical pneumothorax. Impression: No acute fracture or subluxation of the cervical spine. Cervical spondylosis. Electronically Signed by Esdras Barron MD 02/06/2019 10:20 A
== END ==
LOC: M RAD 09:52
PROVIDERS: ATTEND Nurse Practitioner Adult Health
DX: M47.892 Other spondylosis, cervical region (principal)

== ENCOUNTER → 2019-02-23 | Outpatient (RCR) | payer OTHER | LOC: M PR 02-02 14:07 | PROVIDERS: ATTEND Internal Medicine Pulmonary Disease | DX: Z94.2 Lung transplant status (principal) | CPT/HCPCS: G0424 ×5 ==

== ENCOUNTER 2019-04-20 13:18 | Outpatient (RCR) | payer MEDICARE, OTHER ==
--- NOTE | 2019-04-17 08:05 | PULMREHAB ---
DATE OF SERVICE: 04/16/2019 PULMONARY REHABILITATION NOTE: Joe presents today for post-transplant pulmonary rehab. He has been attending pulmonary rehab since July of last year. He is status post bilateral lung transplant and also recently had what I believe is a Osmani fundoplication. He states he was not given any change in weightlifting requirements. He states he is lifting 5 pounds at home, 3 pounds while in the gym here. Comparing his initial to start to his program now his warm-up is about 10 minutes, which is the same. He used to have rest after his warm-up because he was so tired but now he goes directly to NuStep at 0.0 and does 10 minutes on that. He then does 8 minutes on the treadmill, also does strength training, ergometry at a level of 2.5 for 10 minutes. Previously, it was at a level 1, resistance of 1 for 6 minutes, and then now he has also incorporated weight training currently doing 3 pounds for 5 minutes. He usually tolerates the session very well. His NuStep is at L3 level, previously was doing L1. He has shown progression in his exercise tolerance, exercise capacity. He states he has noticed significant improvement especially with just walking. He has no recent rejection, did have one mild rejection in the past requiring some increase in immunosuppression. He is back to his usual dose of immunosuppression and has no issues. Current blood pressure is 138/70, pulse is 78, respiratory rate is 22 with oxygen saturation 98% on room air. General: Awake, alert and oriented. Affect and mood are appropriate. Nutrition and hygiene are good. HEENT: Mucous membranes are moist without lesions. Tongue is midline. Pulmonary: Clear to auscultation without rales, rhonchi or wheezes. No dullness to percussion. No accessory muscle use. Cardiac: Distant S1, S2. Without audible murmur, rub or gallop. No elevated jugular venous pulse (JVP). Normal rate and rhythm. No systemic edema. Skin: Multiple tattoos without rash or jaundice. No bruising. No cyanosis. Outcomes have been measured. As mentioned above, he is showing improvement in his exercise capacity, exercise tolerance with a steadily increase towards more aerobic conditioning and strength conditioning. He has a good mood. Quality of life has improved and has self-reported dyspnea has improved. The individual plan for this gentleman is to continue NuStep at least at L3 level for 10 minutes progressing up to 12 minutes over the next month. Strength training currently staying at dumbbells of 3 pounds due to his recent surgery. Increasing treadmill as much as possible duration and intensity. Will continue to monitor his exercise tolerance over time, but so far has had quite a bit of success in this program. ELEANOR
[2019-04-21] MEDS ORDERED: FILG30VL SC (14:13)
[2019-04-21] MEDS ORDERED: ALLE180T33 PO (14:13)
[2019-04-21] MEDS ORDERED: IPRA2IN INH (14:13)
[2019-04-21] MEDS ORDERED: LIDO5TD TOP (14:13)
[2019-04-21] MEDS ORDERED: ATOR1TAB19 PO (14:13)
[2019-04-21] MEDS ORDERED: PRED10TA2 PO (14:13)
[2019-04-21] MEDS ORDERED: NEXI40CA PO (14:13)
[2019-04-21] MEDS ORDERED: GABA-1171 PO (14:13)
[2019-04-21] MEDS ORDERED: VITA50005 PO (14:13)
[2019-04-21] MEDS ORDERED: VITMTA PO (14:13)
[2019-04-21] MEDS ORDERED: PROP10TA56 PO (14:13)
[2019-04-21] MEDS ORDERED: ACET-897 PO (14:13)
[2019-04-21] MEDS ORDERED: FOLI1TAB11 PO (14:13)
[2019-04-21] MEDS ORDERED: LOPE2CAP PO (14:13)
[2019-04-21] MEDS ORDERED: AZIT-10 PO (14:13)
[2019-04-21] MEDS ORDERED: TESS100C PO (14:13)
[2019-04-21] MEDS ORDERED: CIAL5TAB PO (14:13)
[2019-04-21] MEDS ORDERED: LASI80TA3 PO (14:13)
[2019-04-21] MEDS ORDERED: MAGN400T2 PO (14:13)
[2019-04-21] MEDS ORDERED: TACR0.5C3 PO (14:13)
[2019-04-21] MEDS ORDERED: TACR1CAP3 PO (14:13)
[2019-04-21] MEDS ORDERED: [UNRECOGNIZED DRUG - CODE] PO (14:13)
[2019-04-21] MEDS ORDERED: LASI20TA3 PO (14:13)
[2019-04-21] MEDS ORDERED: ASPI81CH17 PO (14:13)
[2019-04-21] MEDS ORDERED: SING10TA32 PO (14:13)
[2019-04-21] MEDS ORDERED: BACT800T5 PO (14:13)
[2019-04-21] MEDS ORDERED: HUMA100I5 SQ (14:13)
[2019-04-21] MEDS ORDERED: TUMS500C PO (14:13)
[2019-04-21] MEDS ORDERED: LEVA750T7 PO (15:47)
== END 2019-04-25 ==
LOC: M PR 13:18
PROVIDERS: ATTEND Internal Medicine Pulmonary Disease
DX: Z94.2 Lung transplant status (principal)
CPT/HCPCS: G0424 ×4

== ENCOUNTER 2019-04-21 11:18 | Emergency (ER) | payer MEDICARE, OTHER ==
[~2019-04-21] VITALS: Ht 172.7 cm; Wt 73.5 kg
[2019-04-21 12:16] LABS: HEMATOCRIT 27.9 % (42.0-52.0); HEMOGLOBIN 8.9 g/dl (13.5-17.5); MEAN CORPUSCULAR HEMOGLOBIN 30.9 pg (27.0-33.0); MEAN CORPUSCULAR HGB CONC 31.9 g/dl (32.0-36.5); MEAN CORPUSCULAR VOLUME 96.9 fl (80.0-96.0); PLATELET COUNT, AUTOMATED 186 10^3/uL (150-450); RED BLOOD COUNT 2.88 10^6/uL (4.30-6.10); WHITE BLOOD COUNT 4.3 10^3/uL (4.0-10.0)
[2019-04-21] MEDS ORDERED: IPRATROPIUM 0.5MG/ALBUTEROL 2.5MG INH SOL UD 3ML (DUONEB)(J7620) NEB ONE (12:30)
--- NOTE | 2019-04-21 12:37 | REP ---
Clinical: Cough. Comparison: 12/24/2018. Findings: Mediastinum and cardiac silhouette are stable with postsurgical changes again noted. Lung ocampo demonstrate diffuse chronic interstitial changes primarily involving the mid to lower lung zones. Subtle superimposed atelectasis cannot be excluded. No obvious consolidation. No pneumothorax. Skeletal structures intact. Impression: Chronic stable changes similar to prior examination. No obvious acute process identified. Electronically Signed by Uvaldo Hart MD 04/21/2019 12:29 P
[2019-04-21 12:49] LABS: ALBUMIN 3.6 GM/DL (3.2-5.2); ALT/SGPT 42 U/L (12-78); BILIRUBIN,DIRECT < 0.1 MG/DL (0.0-0.2); BILIRUBIN,TOTAL 0.4 MG/DL (0.2-1.0); BLOOD UREA NITROGEN 35 MG/DL (7-18); CALCIUM LEVEL 8.7 MG/DL (8.8-10.2); CARBON DIOXIDE LEVEL 20 MEQ/L (21-32); CHLORIDE LEVEL 110 MEQ/L (98-107); CK-MB VALUE MASS 2.7 NG/ML (<3.6); CPK CREATINE PHOSPHOKINASE 66 U/L (39-308); CREATININE FOR GFR 1.76 MG/DL (0.70-1.30); GLUCOSE, FASTING 94 MG/DL (70-100); MB/CK RELATIVE INDEX 4.09 (< OR =4); NT-PRO BNP 1794 PG/ML (<125); POTASSIUM SERUM 5.3 MEQ/L (3.5-5.1); SODIUM LEVEL 137 MEQ/L (136-145); TOTAL PROTEIN 6.7 GM/DL (6.4-8.2); TROPONIN I < 0.02 NG/ML (< 0.10)
[2019-04-21 13:34] LABS: BASOPHILS 2 % (0-1); EOSINOPHILS 1 % (0-3); LYMPHOCYTES 29 % (16-44); MONOCYTES 6 % (0-5); NEUTROPHILS 61 % (28-66); PLATELET ESTIMATE NORMAL (NORMAL)
[2019-04-21] MEDS ORDERED: IPRA2IN INH (14:13)
[2019-04-21] MEDS ORDERED: AZIT-10 PO (14:13)
[2019-04-21] MEDS ORDERED: BACT800T5 PO (14:13)
[2019-04-21] MEDS ORDERED: VITA50005 PO (14:13)
[2019-04-21] MEDS ORDERED: FILG30VL SC (14:13)
[2019-04-21] MEDS ORDERED: CIAL5TAB PO (14:13)
[2019-04-21] MEDS ORDERED: ALLE180T33 PO (14:13)
[2019-04-21] MEDS ORDERED: PROP10TA56 PO (14:13)
[2019-04-21] MEDS ORDERED: HUMA100I5 SQ (14:13)
[2019-04-21] MEDS ORDERED: TUMS500C PO (14:13)
[2019-04-21] MEDS ORDERED: TACR0.5C3 PO (14:13)
[2019-04-21] MEDS ORDERED: PRED10TA2 PO (14:13)
[2019-04-21] MEDS ORDERED: VITMTA PO (14:13)
[2019-04-21] MEDS ORDERED: GABA-1171 PO (14:13)
[2019-04-21] MEDS ORDERED: SING10TA32 PO (14:13)
[2019-04-21] MEDS ORDERED: TACR1CAP3 PO (14:13)
[2019-04-21] MEDS ORDERED: LOPE2CAP PO (14:13)
[2019-04-21] MEDS ORDERED: MAGN400T2 PO (14:13)
[2019-04-21] MEDS ORDERED: LIDO5TD TOP (14:13)
[2019-04-21] MEDS ORDERED: LASI20TA3 PO (14:13)
[2019-04-21] MEDS ORDERED: FOLI1TAB11 PO (14:13)
[2019-04-21] MEDS ORDERED: LASI80TA3 PO (14:13)
[2019-04-21] MEDS ORDERED: TESS100C PO (14:13)
[2019-04-21] MEDS ORDERED: ASPI81CH17 PO (14:13)
[2019-04-21] MEDS ORDERED: ATOR1TAB19 PO (14:13)
[2019-04-21] MEDS ORDERED: [UNRECOGNIZED DRUG - CODE] PO (14:13)
[2019-04-21] MEDS ORDERED: ACET-897 PO (14:13)
[2019-04-21] MEDS ORDERED: NEXI40CA PO (14:13)
[2019-04-21] MEDS ORDERED: CEFEPIME HCL 1 GM in D5W MINI-BAG PLUS 50 ML IV ONE (15:00)
[2019-04-21 15:45] VITALS: BP 186/92
[2019-04-21] MEDS ORDERED: LEVA750T7 PO (15:47)
[2019-04-21] MEDS ORDERED: LevoFLOXacin 750 MG TABLET PO ONE (16:00)
--- NOTE | 2019-04-22 08:47 | ECGEPIP ---
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
== END 2019-04-21 17:00 | disposition home or self-care (01) ==
LOC: M ED 11:18
DX: J40 Bronchitis, not specified as acute or chronic (principal); J44.9 Chronic obstructive pulmonary disease, unspecified; I11.9 Hypertensive heart disease without heart failure; Z95.1 Presence of aortocoronary bypass graft; Z91.041 Radiographic dye allergy status; Z88.5 Allergy status to narcotic agent; Z91.040 Latex allergy status; Z79.899 Other long term (current) drug therapy; Z79.82 Long term (current) use of aspirin; Z79.2 Long term (current) use of antibiotics; Z79.4 Long term (current) use of insulin; Z79.52 Long term (current) use of systemic steroids; Z85.118 Personal history of other malignant neoplasm of bronchus and lung; Z94.2 Lung transplant status

== ENCOUNTER 2019-05-21 14:29 | Outpatient (RCR) | payer OTHER, MEDICARE ==
[~2019-05-21 14:29] MED LIST changes: +ACET-897 PO; +ASPI81CH17 PO; +ATOR1TAB19 PO; +AZIT-10 PO; +BACT800T5 PO; -BETA2500 PO; +BETA250027 PO; +FILG30VL SC; +FOLI1TAB11 PO; +HUMA100I5 SQ; +IPRA2IN INH; +LASI80TA3 PO; +LEVA750T7 PO; +LIDO5TD TOP; +LOPE2CAP PO; +MAGN400T2 PO; +NEXI40CA PO; +PRED10TA2 PO; +PROP10TA56 PO; +SING10TA32 PO; +TACR1CAP3 PO; +TESS100C PO; +VITA50005 PO; +VITMTA PO; +[UNRECOGNIZED DRUG - CODE] PO
== END 2019-05-26 ==
LOC: M PR 14:29
PROVIDERS: ATTEND Internal Medicine Pulmonary Disease
DX: Z94.2 Lung transplant status (principal)
CPT/HCPCS: G0424 ×5

== ENCOUNTER → 2019-06-19 | Outpatient (CLI) | payer OTHER, MEDICARE ==
--- NOTE | 2019-06-19 17:57 | REPPI ---
Right hip two views: Mineralization and joint space are normal. There is no femoral head deformity. There are no lytic, blastic or destructive changes. There are surgical clips in the soft tissues of the proximal right thigh medially. There are calcifications in metallic densities in the prostate. Impression: Essentially negative plain film study of the right hip. If symptoms persist or worsen, consider MRI. Electronically Signed by Mehdi Luo MD 06/19/2019 05:49 P
--- NOTE | 2019-06-19 17:58 | REPPI ---
Right femur four views: Mineralization is normal. There are surgical clips in the medial proximal right thigh. There are metallic densities in the prostate. There are surgical clips medial to the distal femur. There is vascular calcified atheroma medially. Mineralization is normal. No fracture or dislocation. There are no lytic, blastic or destructive changes. Impression: Essentially negative right femur. Electronically Signed by Mehdi Luo MD 06/19/2019 05:50 P
--- NOTE | 2019-06-19 18:16 | REPPI ---
PA and lateral chest: Comparison is 04/21/2019. There is chronic elevation of the right hemidiaphragm. The lung ocampo otherwise clear and unchanged. Cardiac size is upper normal, unchanged. The cecelia, mediastinum, skeletal structures are unremarkable. There appears to be a small portion of herniated lung at the lateral right chest wall, unchanged, post-traumatic versus postsurgical. Impression: Chronic findings. No acute cardiopulmonary findings. Electronically Signed by Mehdi Luo MD 06/19/2019 06:07 P
== END ==
LOC: M PLAIMG 13:44
PROVIDERS: ATTEND Nurse Practitioner Adult Health
DX: M25.551 Pain in right hip (principal); Z94.2 Lung transplant status; R06.02 Shortness of breath

== ENCOUNTER → 2019-06-22 | Outpatient (CLI) | payer OTHER, MEDICARE ==
[2019-06-22 17:45] LABS: HEMATOCRIT 25.7 % (42.0-52.0); HEMOGLOBIN 7.9 g/dl (13.5-17.5); MEAN CORPUSCULAR HEMOGLOBIN 29.2 pg (27.0-33.0); MEAN CORPUSCULAR HGB CONC 30.7 g/dl (32.0-36.5); MEAN CORPUSCULAR VOLUME 94.8 fl (80.0-96.0); PLATELET COUNT, AUTOMATED 205 10^3/uL (150-450); RED BLOOD COUNT 2.71 10^6/uL (4.30-6.10); WHITE BLOOD COUNT 2.4 10^3/uL (4.0-10.0)
[2019-06-22 18:32] LABS: ALBUMIN 3.9 GM/DL (3.2-5.2); BILIRUBIN,TOTAL 0.4 MG/DL (0.2-1.0); CREATININE FOR GFR 2.06 MG/DL (0.70-1.30); GLOMERULAR FILTRATION RATE 34.2 (>42); POTASSIUM SERUM 5.3 MEQ/L (3.5-5.1); TOTAL PROTEIN 6.6 GM/DL (6.4-8.2)
== END ==
LOC: M PLALAB 13:51
PROVIDERS: ATTEND Nurse Practitioner Adult Health
DX: R06.02 Shortness of breath (principal)

== ENCOUNTER 2019-06-25 13:48 | Outpatient (RCR) | payer OTHER, MEDICARE | END 2019-06-26 | LOC: M PR 13:48 | PROVIDERS: ATTEND Internal Medicine Pulmonary Disease | DX: Z94.2 Lung transplant status (principal) | CPT/HCPCS: G0424 ×6 ==

== ENCOUNTER → 2019-06-28 | Outpatient (CLI) | payer MEDICARE, OTHER | LOC: M LAB 10:33 | PROVIDERS: ATTEND Nurse Practitioner Adult Health | DX: D64.9 Anemia, unspecified (principal) ==

== ENCOUNTER 2019-06-29 11:41 | Outpatient (CLI) | payer MEDICARE, OTHER ==
[~2019-06-29] VITALS: Ht 172.7 cm; Wt 73.5 kg
[~2019-06-29 11:41] MED LIST changes: +ACETAMINOPHEN TAB 650MG DOSE (2X325MG) PO SCH
[2019-06-29] MEDS ORDERED: diphenhydrAMINE 12.5MG/5ML ELIXIR UDC PO ONE (12:15)
[2019-06-29 12:25] VITALS: BP 127/57
[2019-06-29 12:50] VITALS: BP 136/65
[2019-06-29 13:52] VITALS: BP 143/67
[2019-06-29 14:20] VITALS: BP 146/71
== END 2019-06-29 14:45 | disposition home or self-care (01) ==
LOC: M INFU 11:41
PROVIDERS: ATTEND Nurse Practitioner Adult Health
DX: D64.9 Anemia, unspecified (principal); Z88.5 Allergy status to narcotic agent; Z91.040 Latex allergy status; Z91.041 Radiographic dye allergy status
CPT/HCPCS: 36430; P9016

== ENCOUNTER 2019-06-30 11:37 | Outpatient (CLI) | payer MEDICARE, OTHER ==
[~2019-06-30] VITALS: Ht 172.7 cm; Wt 73.5 kg
[2019-06-30 11:45] VITALS: BP 136/63
[2019-06-30] MEDS ORDERED: diphenhydrAMINE 12.5MG/5ML ELIXIR UDC PO ONE (12:15)
[2019-06-30 13:10] VITALS: BP 165/72
[2019-06-30 14:10] VITALS: BP 154/77
[2019-06-30 15:00] VITALS: BP 150/70
[2019-06-30 15:40] VITALS: BP 142/69
== END 2019-06-30 15:40 | disposition home or self-care (01) ==
LOC: M INFU 11:37
PROVIDERS: ATTEND Nurse Practitioner Adult Health
DX: D64.9 Anemia, unspecified (principal); Z88.5 Allergy status to narcotic agent; Z91.041 Radiographic dye allergy status; Z91.040 Latex allergy status
CPT/HCPCS: 36430; P9016

== ENCOUNTER → 2019-09-03 | Outpatient (CLI) | payer MEDICARE, OTHER ==
[~2019-09-03] MED LIST changes: -ACETAMINOPHEN TAB 650MG DOSE (2X325MG) PO SCH
== END ==
LOC: M LABSMTC 13:00
PROVIDERS: ATTEND Family Medicine
DX: Z11.59 Encounter for screening for other viral diseases (principal); Z20.828 Contact with and (suspected) exposure to other viral communicable diseases

== ENCOUNTER → 2020-08-25 | Outpatient (CLI) | payer MEDICARE, OTHER ==
[~2020-08-25] MED LIST changes: +ASPI-281 PO; -ASPI81CH17 PO; +VITA-243 PO; -VITA500T PO
--- NOTE | 2020-08-25 14:26 | REPPI ---
INDICATION: LUNG TRANSPLANT STATUS. COMPARISON: PA and lateral chest dated 06/19/2019. TECHNIQUE: Upright PA and lateral chest. FINDINGS: There is chronic effacement of the right costophrenic angle, slight rib deformities on the right at the 5th rib and slight low intercostal lung herniation at the 4th and 5th ribs laterally. All of these findings are stable and unchanged and could be posttraumatic or postsurgical. There are cerclage wires of the sternum inferiorly, also unchanged. There are mediastinal surgical clips, unchanged. There are faintly visible wires posterior and slightly left lateral to the distal sternum, unchanged. The lung ocampo are otherwise clear and unchanged. Cardiac size is upper normal, unchanged. The cecelia, mediastinum, and skeletal structures are unchanged and unremarkable. IMPRESSION: There are no new or acute cardiopulmonary findings. There are chronic findings as described that could be postsurgical, posttraumatic or combination. <Electronically signed by Mehdi Luo > 08/25/20 [id number]
== END ==
LOC: M PLAIMG 14:01
PROVIDERS: ATTEND Internal Medicine Pulmonary Disease
DX: Z94.2 Lung transplant status (principal)

== ENCOUNTER → 2020-09-16 | Outpatient (CLI) | payer OTHER ==
--- NOTE | 2020-09-16 08:21 | REP ---
INDICATION: CERVICALGIA, CERVICAL SPONDYLOSIS. COMPARISON: None. TECHNIQUE: Axial CT images with multiplanar reformations. FINDINGS: No evidence of fracture or subluxation. There is scattered degenerative osteophyte formation, with a osteophyte projecting into the spinal canal at the superior aspect of C5. At the remaining levels, no significant canal stenosis. There is a slight subluxation of C2 over C3. Craniovertebral junction is unremarkable. On review of axial images, At C2-3 no significant canal or foraminal narrowing. At C3-4 no significant canal or foraminal narrowing. Facet degenerative change seen on the left. At C4-5 there is facet hypertrophic degenerative change on the right. An osteophyte narrows the proximal right neural foramen. Mild left foraminal narrowing and no significant canal stenosis. At C5-6 facet hypertrophy and osteophyte formation on the right with [id number] right foraminal narrowing. There is mild canal narrowing and mild left foraminal narrowing. At C6-7 fwdm-[id number] canal narrowing and [id number] bilateral foraminal narrowing. At C7-T1 no significant canal or foraminal narrowing. There is calcific atherosclerosis at the carotid bifurcations bilaterally without evidence of narrowing. IMPRESSION: 1. No fracture. Mild subluxation of C2 over C3 with facet degenerative changes at this level on the left. 2. Degenerative changes are notable at the C4-5 and C5-6 levels. 3. At C4-5 an osteophyte narrows the proximal right neural foramen with cqhapgog-gv-[id number] foraminal narrowing. 4. At C5-6 facet hypertrophy and osteophyte formation on the right with [id number] right foraminal narrowing. 5. MRI would be helpful to further evaluate soft tissues. <Electronically signed by Clay Haywood > 09/16/20 [id number]
== END ==
LOC: M RAD 06:54
PROVIDERS: ATTEND Physician Assistant Medical
DX: M54.2 Cervicalgia (principal)

== ENCOUNTER → 2020-10-20 | Outpatient (CLI) | payer OTHER ==
[~2020-10-20] MED LIST changes: +GABA-283 PO; -GABA-845 PO
== END ==
LOC: M LABSMTC 10:28
PROVIDERS: ATTEND Anesthesiology
DX: Z01.818 Encounter for other preprocedural examination (principal); Z11.52 Encounter for screening for COVID-19

== ENCOUNTER → 2020-11-19 | Outpatient (CLI) | payer OTHER ==
[~2020-11-19] MED LIST changes: +CELL250C PO; +ERGO500029 PO; +VENTAER INH; +ZOFR4TAB16 PO
== END ==
LOC: M LABSMTC 10:17
PROVIDERS: ATTEND Anesthesiology
DX: Z01.818 Encounter for other preprocedural examination (principal); Z11.52 Encounter for screening for COVID-19

== ENCOUNTER 2020-11-24 07:27 | Day surgery (SDC) | payer OTHER ==
[~2020-11-24] VITALS: Ht 172.7 cm; Wt 78.5 kg
[~2020-11-24 07:27] MED LIST changes: +NS 1,000 ML IV ONE
[2020-11-24] MEDS ORDERED: propofoL 200 MG/20 ML VIAL As Ordered ONE (08:10)
[2020-11-24] MEDS ORDERED: LIDOCAINE 2% MDV 20ML VIAL As Ordered ONE (08:10)
--- NOTE | 2020-11-24 08:46 | ROOR ---
Patient Name: Gerald Redman Procedure Date: 11/24/2020 8:17 AM Date of : 1950 Age: 70 Room: [facility] Gender: Male Note Status: Finalized Procedure: Colonoscopy Indications: Rectal bleeding Providers: Sandip Desai Jr, MD Referring MD: Annelise Lara NP Requesting Provider: Medicines: Propofol per Anesthesia Complications: No immediate complications. Procedure: Pre-Anesthesia Assessment: - Prior to the procedure, a History and Physical was performed, and patient medications and allergies were reviewed. The patient is competent. The risks and benefits of the procedure and the sedation options and risks were discussed with the patient. All questions were answered and informed consent was obtained. Patient identification and proposed procedure were verified by the physician and the nurse in the pre-procedure area and in the procedure room. Mental Status Examination: alert and oriented. Airway Examination: normal oropharyngeal airway and neck mobility. Respiratory Examination: clear to auscultation. CV Examination: normal. ASA Grade Assessment: II - A patient with mild systemic disease. After reviewing the risks and benefits, the patient was deemed in satisfactory condition to undergo the procedure. The anesthesia plan was to use moderate sedation / analgesia (conscious sedation). Immediately prior to administration of medications, the patient was re-assessed for adequacy to receive sedatives. The heart rate, respiratory rate, oxygen saturations, blood pressure, adequacy of pulmonary ventilation, and response to care were monitored throughout the procedure. The physical status of the patient was re-assessed after the procedure. The Colonoscope was introduced through the anus and advanced to the cecum, identified by appendiceal orifice and ileocecal valve. The colonoscopy was performed without difficulty. The patient tolerated the procedure well. The quality of the bowel preparation was adequate. Findings: Multiple small and large-mouthed diverticula were found in the sigmoid colon. Scattered small-mouthed diverticula were found in the transverse colon and ascending colon. Three polyps were found in the transverse colon, ascending colon and cecum. The polyps were diminutive in size. These polyps were removed with a hot snare. Resection was complete, but the polyp tissue was only partially retrieved. A medium polyp was found in the rectum. The polyp was semi-sessile. The polyp was removed with a hot snare. Resection and retrieval were complete. To close a defect after polypectomy, one hemostatic clip was successfully placed. There was no bleeding at the end of the procedure. Impression: - No specimens collected. Recommendation: - Repeat colonoscopy at appointment to be scheduled for surveillance based on pathology results. Procedure Code(s): --- Professional --- 18265, Colonoscopy, flexible; with removal of tumor(s), polyp(s), or other lesion(s) by snare technique Diagnosis Code(s): --- Professional --- K62.5, Hemorrhage of anus and rectum CPT copyright 2019 [employer]. All rights reserved. The codes documented in this report are preliminary and upon petroleum refinery laborer review may be revised to meet current compliance requirements. Sandip Desai MD Sandip Desai Jr, MD 11/24/2020 8:46:19 AM Electronically signed by Sandip Desai Jr, MD Number of Addenda: 0 Note Initiated On: 11/24/2020 8:17 AM Estimated Blood Loss: Estimated blood loss: none. Estimated blood loss: none.
[2020-11-24 09:00] VITALS: BP 135/73
== END 2020-11-24 09:07 | disposition home or self-care (01) ==
LOC: M OPP 07:27
PROVIDERS: ATTEND Surgery
DX: D12.0 Benign neoplasm of cecum (principal); K62.1 Rectal polyp; K57.30 Diverticulosis of large intestine without perforation or abscess without bleeding; N18.4 Chronic kidney disease, stage 4 (severe); K62.5 Hemorrhage of anus and rectum; N40.0 Benign prostatic hyperplasia without lower urinary tract symptoms; J84.10 Pulmonary fibrosis, unspecified; Z94.2 Lung transplant status; Z92.21 Personal history of antineoplastic chemotherapy; Z79.2 Long term (current) use of antibiotics; Z79.82 Long term (current) use of aspirin; Z79.899 Other long term (current) drug therapy; Z88.5 Allergy status to narcotic agent; Z91.040 Latex allergy status; Z91.041 Radiographic dye allergy status

== ENCOUNTER → 2021-01-25 | Outpatient (CLI) | payer OTHER ==
[~2021-01-25] MED LIST changes: -NS 1,000 ML IV ONE
--- NOTE | 2021-01-26 07:23 | REP ---
INDICATION: LUNG TRANSPLANT STATUS COMPARISON: 06/19/2019 TECHNIQUE: PA and lateral. FINDINGS: Mediastinum and cardiac silhouette are stable and postsurgical changes are again noted. Lung ocampo demonstrate chronic changes primarily involving the right hemithorax. No acute consolidation, effusion, or pneumothorax. Skeletal structures are intact.. IMPRESSION: Chronic stable changes. No acute consolidation or effusion. <Electronically signed by Uvaldo Hart > 01/26/21 0719
== END ==
LOC: M PLAIMG 14:13 → M PLALAB 14:13
PROVIDERS: ATTEND Nurse Practitioner Adult Health
DX: Z94.2 Lung transplant status (principal)

== ENCOUNTER → 2021-02-01 | Outpatient (CLI) | payer OTHER | LOC: M LABSMTC 09:20 | PROVIDERS: ATTEND Anesthesiology | DX: Z01.818 Encounter for other preprocedural examination (principal); Z11.52 Encounter for screening for COVID-19 ==

== ENCOUNTER 2021-02-03 08:55 | Day surgery (SDC) | payer OTHER ==
[~2021-02-03] VITALS: Ht 172.7 cm; Wt 79.3 kg
[~2021-02-03 08:55] MED LIST changes: -ASPI-281 PO; +ASPI-310 PO; +BSS IRR 500ML/OMIDRIA 4ML IRR BAG (OR ONLY) As Ordered ONE; +BSS IRR 500ML/OMIDRIA 4ML IRR BAG (OR ONLY) IO ONE; +CEFUROXIME 1MG/0.1ML INTRACAMERAL INJ As Ordered ONE; +CEFUROXIME 1MG/0.1ML INTRACAMERAL INJ ICAM ONE; +DUOVISC (0.50ML VISCOAT/0.85ML PROVISC) OPHTH KIT As Ordered ONE; +LIDOCAINE 1% SDV 5ML VIAL As Ordered ONE; +OFLOXACIN 0.3 % (OCUFLOX) OPTH SOL 5ML OD SCH; +PHENYLEPHRINE 2.5% OPHTH SOL 2ML OD SCH; +PROPARACAINE 0.5% OPHTH SOL 15ML OD ONE; +TROPICAMIDE 1% OPHTH SOLN 2ML OD SCH
[2021-02-03] MEDS ORDERED: MIDAZOLAM INJ 2MG/2ML VIAL (J2250 PER 1MG) As Ordered ONE (12:15)
[2021-02-03] MEDS ORDERED: fentaNYL 100 MCG/2 ML INJECTION (J3010) As Ordered ONE (12:16)
[2021-02-03 13:30] VITALS: BP 168/87
--- NOTE | 2021-02-03 15:44 | ROOPDOC ---
[facility] Report Of Operation Report of Operation DATE OF PROCEDURE: 02/03/21 PREPROCEDURE DIAGNOSES: Mature cataract right eye. POSTPROCEDURE DIAGNOSES: Same. PROCEDURE PERFORMED: Phacoemulsification cataract extraction implantation intraocular lens right eye. SURGEON: Atif Nickerson MD RELIEF CAPTAIN: None ANESTHESIA: MAC. ESTIMATED BLOOD LOSS: Approximately 0 cc mL. COMPLICATIONS: None. LENS: 21.0. diopters SPECIMENS REMOVED: None INDICATIONS: Patient experienced decreased vision associated with cataract formation. Slit-lamp examination confirmed the diagnosis. Informed consent was obtained for removal of the cataract and placement of intraocular lens. PROCEDURE NOTE: Patient was identified in the holding room and the operative eye was marked. Patient was wheeled spine the OR suite and positioned on the stretcher. The lids lashes and periocular face of the operative eye were prepped with 5% povidone iodine. The lashes were taped with a Tegaderm dressing. A speculum was placed in the operative eye. 1 mm side-port was created. 1% preservative-free lidocaine was injected. Viscoat was injected. A 2.6 mm stepped groove clear cornea incision was made temporally. A bent cystotome needle and Utrata forceps were used to fashion a continuous curvilinear capsulorhexis. BSS was used to hydrodissect. The lens was found to rotate freely. The lens was phacoemulsified using a divide and conquer technique. Residual cortex was removed with the I/A. Provisc was injected to expand the capsular bag. The lens was injected using the lens delivery system and positioned with a Curt hook. Residual viscoelastic was removed with the I/A. BSS was used to hydrate the corneal wound. Antibiotic prophylaxis was injected. The speculum was removed from the eye. A shield was taped over the eye. The patient was sent in excellent condition to the recovery room with a shield. ATIF NICKERSON M.D. Feb 03, 2021 15:44
== END 2021-02-03 13:40 | disposition home or self-care (01) ==
LOC: M SDC 08:55
PROVIDERS: ATTEND Ophthalmology
DX: H25.11 Age-related nuclear cataract, right eye (principal); K21.9 Gastro-esophageal reflux disease without esophagitis; N18.4 Chronic kidney disease, stage 4 (severe); J44.9 Chronic obstructive pulmonary disease, unspecified; R06.83 Snoring; N40.0 Benign prostatic hyperplasia without lower urinary tract symptoms; Z92.21 Personal history of antineoplastic chemotherapy; Z86.73 Personal history of transient ischemic attack (TIA), and cerebral infarction without residual deficits; Z86.79 Personal history of other diseases of the circulatory system; Z94.2 Lung transplant status; Z95.1 Presence of aortocoronary bypass graft; Z88.5 Allergy status to narcotic agent; Z91.041 Radiographic dye allergy status; Z88.1 Allergy status to other antibiotic agents; Z85.118 Personal history of other malignant neoplasm of bronchus and lung; Z87.891 Personal history of nicotine dependence; Z79.899 Other long term (current) drug therapy; Z79.52 Long term (current) use of systemic steroids; Z79.2 Long term (current) use of antibiotics; Z79.82 Long term (current) use of aspirin
CPT/HCPCS: 66984; J1097; J2250; J3010; V2632

== ENCOUNTER → 2021-03-13 | Outpatient (CLI) | payer OTHER ==
[~2021-03-13] MED LIST changes: -BSS IRR 500ML/OMIDRIA 4ML IRR BAG (OR ONLY) As Ordered ONE; -BSS IRR 500ML/OMIDRIA 4ML IRR BAG (OR ONLY) IO ONE; -CEFUROXIME 1MG/0.1ML INTRACAMERAL INJ As Ordered ONE; -CEFUROXIME 1MG/0.1ML INTRACAMERAL INJ ICAM ONE; -DUOVISC (0.50ML VISCOAT/0.85ML PROVISC) OPHTH KIT As Ordered ONE; -LIDOCAINE 1% SDV 5ML VIAL As Ordered ONE; -OFLOXACIN 0.3 % (OCUFLOX) OPTH SOL 5ML OD SCH; -PHENYLEPHRINE 2.5% OPHTH SOL 2ML OD SCH; -PROPARACAINE 0.5% OPHTH SOL 15ML OD ONE; -TROPICAMIDE 1% OPHTH SOLN 2ML OD SCH
== END ==
LOC: M LABSMTC 09:10
PROVIDERS: ATTEND Anesthesiology
DX: Z01.812 Encounter for preprocedural laboratory examination (principal); Z20.822 Contact with and (suspected) exposure to COVID-19

== ENCOUNTER 2021-03-17 07:56 | Day surgery (SDC) | payer OTHER ==
[~2021-03-17] VITALS: Ht 170.2 cm; Wt 79.6 kg
[~2021-03-17 07:56] MED LIST changes: +BSS IRR 500ML/OMIDRIA 4ML IRR BAG (OR ONLY) As Ordered ONE; +CEFUROXIME 1MG/0.1ML INTRACAMERAL INJ As Ordered ONE; +DUOVISC (0.50ML VISCOAT/0.85ML PROVISC) OPHTH KIT As Ordered ONE; +MIDAZOLAM INJ 2MG/2ML VIAL (J2250 PER 1MG) As Ordered ONE; +PHENYLEPHRINE 1.5%/LIDOCAINE 1% INTRAOCULAR 0.8ML SYRINGE As Ordered ONE; +PROPARACAINE 0.5% OPHTH SOL 15ML OS ONE; +fentaNYL 100 MCG/2 ML INJECTION (J3010) As Ordered ONE
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
--- OUTSIDE RECORDS SUMMARY | 2021-03-17 07:59 | CCD ---
Continuity of Care Document (CCD) Created on: 02/14/2021 Gerald Redman External Reference #: [id number] : [id number] Sex: Male Author Author Gerald CHAUDHARI MD Organization Unknown Address [address] [place] [address] Phone [phone] Care Team Providers Care Scientist Propagator Name Role Phone ElviaageAnnelise R.N. AUTM [phone] Lucina Burgess M.D. AUTM [phone] Problems Active Problems Provider Date History of polyp of colon JESE Frias Onset: 018 Chronic obstructive lung disease Lai Chaudhari MD Onset: 07/06/2015 Acute sinusitis Lai Chaudhari MD Onset: 10/27/2013 Diagnostic dye allergy Lai Chaudhari MD Onset: 12/26/2010 Acute maxillary sinusitis Lai Chaudhari MD Onset: 011 Overweight Lai Chaudhari MD Onset: 12/26/2010 Ex-smoker Lai Chaudhari MD Onset: 12/25/2010 History of malignant neoplasm of bronchus Ravi Jones Onset: 09/18/2010 Acute exacerbation of chronic obstructive airways dise ase Marysol Zepeda, A.N.P. Onset: 06/12/2010 Cough Marysol Zepeda, A.N.P. Onset: 2010 Dyspnea Marysol Zepeda, A.N.P. Onset: 2010 Emphysematous bronchitis Lai Chaudhari MD Onset: 05/11/20 10 Malignant tumor of bronchus Lai Chaudhari MD Onset: 05/11 Social History Type Date Description Comments Sex Unknown ETOH Use 1-3 Monthly Recreational Drug Use Denies Drug Use Tobacco Use Start: Unknown End: Unknown Patient is a former smoker QUIT 2006 - SMOKED 1-4 PPD FOR 40 YEARS Smoking Status Reviewed: 02/14/21 Patient is a former smoker QU IT 2007 - SMOKED 1-4 PPD FOR 40 YEARS Allergies, Adverse Reactions, Alerts Active Allergies Criticality Reaction | Severity Comments Date IVP Dye Unable to assess criticality hives 09/12/2017 Oxycodone Unable to assess criticality dizziness 09/12/2017 Sulfamethoxazole / Trimethoprim Unable to assess criticality dark urine,listless 05/08/2011 Iodinated Diagnostic Agents Unable to assess criticality Urticaria 12/26/2010 Levaquin Unable to assess criticality dizzy, light headed 05/13/2019 Medications Active Medications SIG Qnty Indications Ordering Provide r Date Lasix 20mg Tablets 2 b y mouth every day 3tabs Unknown Multivitamin Adult Tablets 1 qd Unknown Loperamide HCL 2mg Capsules take 1 capsule 1-2 times a day for severe diarrhea (only take when having diarrhea) Unknown Esomeprazole Magnesium 40mg Capsul es DR 1 by mouth 2 X every day Unknown 0 Ipratropium [place] 0.02% Solution 1 vial via neb four times a day prn Unknown Bactrim DS 800-160mg Tablets 1 tab by mouth twice a day Unknown Tadalafil 5mg Tablets 1 qd Unknown Vitamin D (Ergocalciferol) 1.25mg (52620 Ut) Capsules 1 Q Week Unknown Propranolol HCL 40mg Tablets 1 tid Unknown Lidocaine 5% Patches as Neede d Unknown Magnesium Oxide (Elemental) 400mg Tablets 1 qd Unknown Folic Acid 1mg Tablets one tablet by mouth every day after meals Unknown Gabapentin 100mg Capsules 1 by mouth 2 times a day Unknown Mycophenolate Mofetil 250mg Capsules 1 qd Unknown Montelukast Sodium 10mg Tablets 1 by mouth every day Unknown Allergy Relief Loratadine 10mg Tab lets 1 qd Unknown Albuterol Sulfate (2 .5mg/3ML) 0.083% Nebulizer 1 vial four times a day as needed Unknown Pantoprazole Sodium 40mg Tablets D R 1 by mouth every day Unknown Aspir-[address] 1 by mouth every day Unknown Zofran 4mg Tablets 1 by mo uth as needed Unknown Prograf 0.5mg Capsules 1 tab by mouth 2 X everyday Unknown Metoprolol Succinate ER 25mg Tablets ER 24HR 1 by mouth every day every morning Unknow n Atorvastatin Calcium 10mg Tablets 1 by mouth every day Unknown Combivent Respimat 20-100mcg/Act A erosol One Inhalation Four Times A Day as Needed 12units Rosalinda Chaudhari MD History Medications Suprep Bowel Prep Kit 17.5-3.13-1.6GM/177ML Solution take per doctor's bowel prep instructions. 354ml Sandip Desai JR, MD 11/10/2020 - 05/15/2020 Immunizations CPT Code Status Date Vaccine Lot # [id number] Given 04/18/2016 Influenza Virus Split 3 Yrs And Above For Intramuscular Use 07859 Given 03/21/2016 Influenza Virus Split 3 Yrs And Above For Intramuscular Use 07481 Given 04/01/2014 Influenza Virus Split 3 Yrs And Above For Intramuscular Use Q2036 Given 04/21/2012 Influenza Vaccine 3 Years Of Age Or Older (Flulaval) 80083 Given Unknown Pneumococcal PPSV23 07214 Given Unknown Influenza Virus Split 3 Yrs And Above For Intramuscular Use Q2036 Refused 05/08/2011 Influenza Vaccine 3 Years Of Age Or Older (Flulaval) Vital Signs Date Vital Result Comment 02/14/2021 1:11pm BP Systolic 124 mmHg BP Diastolic 70 mmHg Heart Rate 77 /min O2 % BldC Oximetry 94 % Room Air Height 68 inches 5'8" Weight 170.00 lb BMI (Body Mass Index) 25.8 kg/m2 [place] Body Weight 154 lb Weight 77.112 kg BSA (Body Surface Area) 1.91 m2 12/21/2020 1:49pm BP Systolic 120 mmHg BP Diastolic 72 mmHg Body Temperature 98.7 F Height 68 inches 5'8" Weight 178.00 lb BMI (Body Mass Index) 27.1 kg/m2 [place] Body Weight 154 lb Weight 80.741 kg BSA (Body Surface Area) 1.94 m2 Results Test Acquired Date Facility Test Result H/L Range Note Laboratory test finding 11/24/2020 [facility] Main Lab [address] [place] [address] [phone] Pathology Request For Service (SEE NOTE) 1 1 FINAL DIAGNOSIS A--Colon polyps, polypectomy: Tubular adenoma,fragments. B-Rectal polyp, polypectomy: Tubular adenoma, fragments. 11/25/2020 - 1237 CLINICAL DIAGNOSIS Rectal bleeding 11/24/2020 - 1503 GROSS DIAGNOSIS A - Received in formalin labeled "colon polyps" and consists of a fragment of tissue, 0.1 x 0.1 x 0.1 cm. All in one. B - Received in formalin labeled "rectal polyp" and consists of fragments of tissue, 1 x 1 x 0.5 cm in aggregate. All in one. -OA 11/25/2020 - 1237 Signed GANGA VARGAS MD 11/25/2020 1237 Procedures Date Code Description Status 12/21/2020 13805 Office/Outpatient Established Lo w MDM 20-29 Min Completed 11/24/2020 88227 Colonoscopy W/ Poly Completed 09/19/2020 22330 Office/Outpatient Established Mo d MDM 30-39 Min Completed 08/26/2020 95948 Diffusing Capacity Completed 08/26/2020 02734 Plethysmography Determination Kayla ng Volumes & Per Airway Resist Completed 08/26/2020 43041 Bronchospasm Evaluation Complete d 08/19/2020 42654 Measure Blood Oxygen Level Doc nuous Overnight Monitor Completed Medical Devices Description No Information Available Encounters Type Date Location Provider Dx Diagnosis Office Visit 12/21/2020 1:45p [facility] MICHA Hernadez D12.6 Benign neoplasm of colon, unspecified D12.8 Benign neoplasm of rectum Office Visit 09/19/2020 1:45p [facility] Sandip mora JR, MD K62.5 Hemorrhage of anus and rectum Z86.010 Personal history of colonic polyps Assessments Date Code Description Provider 02/14/2021 Z94.2 Lung transplant status Lai Chaudhari MD 12/21/2020 D12.6 Benign neoplasm of colon, unspec ified MICHA Morin 12/21/2020 D12.8 Benign neoplasm of rectum MICHA Morin 11/24/2020 D12.6 Benign neoplasm of colon, unspec ified Sandip Desai JR, MD 11/24/2020 D12.8 Benign neoplasm of rectum Sandip Desai JR, MD 11/24/2020 K62.5 Hemorrhage of anus and rectum Vandana Desai JR, MD 11/24/2020 K57.30 Diverticulosis of la rge intestine without perforation or abscess without bleeding Sandip Desai JR, MD 09/19/2020 K62.5 Hemorrhage of anus and rectum Vandana Desai JR, MD 09/19/2020 Z86.010 Personal history of colonic poly ps Sandip Desai JR, MD 08/26/2020 Z94.2 Lung transplant status Pulmonary Lab 08/19/2020 R40.0 Somnolence Nocturnal Oximet ry Plan of Treatment Future Appointment(s):* 08/15/2021 1:15 pm - Lai Chaudhari MD at [facility] Pulmonary/Thoracic 02/14/2021 - Lai Chaudhari MD* Z94.2 Lung transplant status * * New Labs:* FVL/[place], Ordered: 02/14/21 * Follow up:* 6 months with fvl Get records from [facility] Functional Status Description No Information Available Mental Status Description No Information Available Referrals Description No Information Available
--- OUTSIDE RECORDS SUMMARY | 2021-03-17 07:59 | CCD | Continuity of Care Document ---
Author Author Gerald CHAUDHARI MD Organization Unknown Address [address] [place] [address] Phone [phone] Care Team Providers Care Rn Long Term Care Name Role Phone ElviaageAnnelise R.N. AUTM [phone] Lucina Burgess M.D. AUTM [phone] Problems Active Problems Provider Date History of [...] 2 X every day Unknown 0 Ipratropium [place] 0.02% Solution 1 vial via neb four times a day prn Unknown Bactrim DS 800-160mg Tablets 1 tab by mouth twice a day Unknown Tadalafil 5mg Tablets 1 qd Unknown Vitamin D (Ergocalciferol) 1.25mg (19977 Ut) Capsules 1 Q Week Unknown Propranolol [...] CPT Code Status Date Vaccine Lot # [id number] Given 04/18/2016 Influenza Virus Split 3 Yrs And Above For Intramuscular Use 20436 Given 03/21/2016 Influenza Virus Split 3 Yrs And Above For Intramuscular Use 67064 Given 04/01/2014 Influenza Virus Split 3 Yrs And Above For Intramuscular Use Q2036 Given 04/21/2012 Influenza Vaccine 3 Years Of Age Or Older (Flulaval) 87154 Given Unknown Pneumococcal PPSV23 55290 Given Unknown Influenza Virus Split 3 Yrs [...] lb BMI (Body Mass Index) 25.8 kg/m2 [place] Body Weight 154 lb Weight 77.112 kg BSA (Body Surface Area) 1.91 m2 12/21/2020 1:49pm BP Systolic 120 mmHg BP Diastolic 72 mmHg Body Temperature 98.7 F Height 68 inches 5'8" Weight 178.00 lb BMI (Body Mass Index) 27.1 kg/m2 [place] Body Weight 154 lb Weight 80.741 kg BSA (Body Surface Area) 1.94 m2 Results Test Acquired Date Facility Test Result H/L Range Note Laboratory test finding 11/24/2020 [facility] Main Lab [address] [place] [address] [phone] Pathology Request For Service (SEE NOTE) 1 [...] 11/25/2020 1237 Procedures Date Code Description Status 02/14/2021 61974 Office/Outpatient Established Lo w MDM 20-29 Min Completed 12/21/2020 08651 Office/Outpatient Established Lo w MDM 20-29 Min Completed 11/24/2020 36449 Colonoscopy W/ Poly Completed 09/19/2020 68978 Office/Outpatient Established Mo d MDM 30-39 Min Completed 08/26/2020 98095 Diffusing Capacity Completed 08/26/2020 66830 Plethysmography Determination Kayla ng Volumes & Per Airway Resist Completed 08/26/2020 65715 Bronchospasm Evaluation Complete d 08/19/2020 33253 Measure Blood Oxygen Level Doc nuous Overnight Monitor Completed Medical Devices Description No Information Available Encounters Type Date Location Provider Dx Diagnosis Office Visit 02/14/2021 1:15p [facility] Pulmonary/Thoracic Lawrenc marcia Chaudhari MD Z94.2 Lung transplant status Office Visit 12/21/2020 1:45p [facility] MICHA Hernadez D12.6 Benign neoplasm of colon, unspecified D12.8 Benign neoplasm of rectum Office Visit 09/19/2020 1:45p [facility] Sandip mora JR, MD K62.5 Hemorrhage [...] 1:15 pm - Lai Chaudhari MD at [facility] Pulmonary/Thoracic 02/14/2021 - Lai Chaudhari MD* Z94.2 Lung transplant status * * New Labs:* FVL/[place], Ordered: 02/14/21 * Comments:* ~ At this point, I have urged him to try to be much more active on a regular basis. We will try to get records from [place]. He remains on medications, at least according to his current list, not only for his anti- rejection status, but it appears he is still on medications for pulmonary hypertension. I am very interested in getting the records from [place].~ I will give him a scheduled follow-up in 6 months with repeat spirometry and flow volume loop. He tells me he is supposed to go back to [place] in February, but is not sure he is going to go, again, with concerns over the coronavirus. I, again, discussed with him the fact that he needs to quit picking and choosing when he goes for his anti-rejection and monitoring visits. We will see him as outlined above. * Follow up:* 6 months with fvl Get records from [facility] Functional Status Description No Information Available Mental Status Description No Information Available Referrals Description No Information Available
--- OUTSIDE RECORDS SUMMARY | 2021-03-17 08:00 | CCD ---
Author Author [facility] Organization [facility] Address Unknown Phone Unavailable Care Team Providers Care Territory Supervisor Name Role Phone JERNIGAN SR, JUANCARLOS DEY MD Unavailable Unavailable JERNIGAN SR, JUANCARLOS DEY MD Unavailable Unavailable JERNIGAN SR, JUANCARLOS DEY MD Unavailable Unavailable JERNIGAN SR, JUANCARLOS DEY MD Unavailable Unavailable JERNIGAN SR, JUANCARLOS DEY MD Unavailable Unavailable JERNIGAN SR, JUANCARLOS DEY MD Unavailable Unavailable JERNIGAN SR, JUANCARLOS DEY MD Unavailable Unavailable JERNIGAN SR, JUANCARLOS DEY MD Unavailable Unavailable JERNIGAN SR, JUANCARLOS DEY MD Unavailable Unavailable JERNIGAN SR, JUANCARLOS DEY MD Unavailable Unavailable JERNIGAN SR, JUANCARLOS DEY MD Unavailable Unavailable JERNIGAN SR, JUANCARLOS DEY MD Unavailable Unavailable JERNIGAN SR, JUANCARLOS DEY MD Unavailable Unavailable JERNIGAN SR, JUANCARLOS DEY MD Unavailable Unavailable JERNIGAN SR, JUANCARLOS DEY MD Unavailable Unavailable JERNIGAN SR, JUANCARLOS DEY MD Unavailable Unavailable JERNIGAN SR, JUANCARLOS DEY MD Unavailable Unavailable JERNIGAN SR, JUANCARLOS DEY MD Unavailable Unavailable JERNIGAN SR, JUANCARLOS DEY MD Unavailable Unavailable JERNIGAN SR, JUANCARLOS DEY MD Unavailable Unavailable JERNIGAN SR, JUANCARLOS DEY MD Unavailable Unavailable JERNIGAN SR, JUANCARLOS DEY MD Unavailable Unavailable JERNIGAN SR, JUANCARLOS DEY MD Unavailable Unavailable JERNIGAN SR, JUANCARLOS DEY MD Unavailable Unavailable JERNIGAN SR, JUANCARLOS DEY MD Unavailable Unavailable JERNIGAN SR, JUANCARLOS DEY MD Unavailable Unavailable JERNIGAN SR, JUANCARLOS DEY MD Unavailable Unavailable JERNIGAN SR, JUANCARLOS DEY MD Unavailable Unavailable JERNIGAN SR, JUANCARLOS DEY MD Unavailable Unavailable JERNIGAN SR, JUANCARLOS DEY MD Unavailable Unavailable JERNIGAN SR, JUANCARLOS DEY MD Unavailable Unavailable JERNIGAN SR, JUANCARLOS DEY MD Unavailable Unavailable JERNIGAN SR, JUANCARLOS DEY MD Unavailable Unavailable JERNIGAN SR, JUANCARLOS DEY MD Unavailable Unavailable JERNIGAN SR, JUANCARLOS DEY MD Unavailable Unavailable JERNIGAN SR, JUANCARLOS DEY MD Unavailable Unavailable JERNIGAN SR, JUANCARLOS DEY MD Unavailable Unavailable JERNIGAN SR, JUANCARLOS DEY MD Unavailable Unavailable JERNIGAN SR, JUANCARLOS DEY MD Unavailable Unavailable JERNIGAN SR, JUANCARLOS DEY MD Unavailable Unavailable JERNIGAN SR, JUANCARLOS DEY MD Unavailable Unavailable JERNIGAN SR, JUANCARLOS DEY MD Unavailable Unavailable JERNIGAN SR, JUANCARLOS DEY MD Unavailable Unavailable JERNIGAN SR, JUANCARLOS DEY MD Unavailable Unavailable JERNIGAN SR, JUANCARLOS DEY MD Unavailable Unavailable JERNIGAN SR, JUANCARLOS DEY MD Unavailable Unavailable JERNIGAN SR, JUANCARLOS DEY MD Unavailable Unavailable JERNIGAN SR, JUANCARLOS DEY MD Unavailable Unavailable JERNIGAN SR, JUANCARLOS DEY MD Unavailable Unavailable JERNIGAN SR, JUANCARLOS DEY MD Unavailable Unavailable JERNIGAN SR, JUANCARLOS DEY MD Unavailable Unavailable JERNIGAN SR, JUANCARLOS DEY MD Unavailable Unavailable JERNIGAN SR, JUANCARLOS DEY MD Unavailable Unavailable JERNIGAN SR, JUANCARLOS DEY MD Unavailable Unavailable JERNIGAN SR, JUANCARLOS DEY MD Unavailable Unavailable JERNIGAN SR, JUANCARLOS DEY MD Unavailable Unavailable Trickey, J Lizz PA Unavailable Unavailable Trickey, J Lizz PA Unavailable Unavailable Trickey, J Lizz PA Unavailable Unavailable Trickey, J Lizz PA Unavailable Unavailable Trickey, J Lizz PA Unavailable Unavailable Trickey, J Lizz PA Unavailable Unavailable Trickey, J Lizz PA Unavailable Unavailable Trickey, J Lizz PA Unavailable Unavailable Trickey, J Lizz PA Unavailable Unavailable Trickey, J Lizz PA Unavailable Unavailable Trickey, J Lizz PA Unavailable Unavailable Trickey, J Lizz PA Unavailable Unavailable Trickey, J Lizz PA Unavailable Unavailable Trickey, J Lizz PA Unavailable Unavailable Trickey, J Lizz PA Unavailable Unavailable Trickey, J Lizz PA Unavailable Unavailable Trickey, J Lizz PA Unavailable Unavailable Trickey, J Lizz PA Unavailable Unavailable Trickey, J Lizz PA Unavailable Unavailable Trickey, J Lizz PA Unavailable Unavailable Trickey, J Lizz PA Unavailable Unavailable Trickey, J Lizz PA Unavailable Unavailable Trickey, J Lizz PA Unavailable Unavailable Trickey, J Lizz PA Unavailable Unavailable Trickey, J Lizz PA Unavailable Unavailable Trickey, J Lizz PA Unavailable Unavailable Trickey, J Lizz PA Unavailable Unavailable Trickey, J Lizz PA Unavailable Unavailable Trickey, J Lizz PA Unavailable Unavailable Trickey, J Lizz PA Unavailable Unavailable Trickey, J Lizz PA Unavailable Unavailable Trickey, J Lizz PA Unavailable Unavailable Trickey, J Lizz PA Unavailable Unavailable Trickey, J Lizz PA Unavailable Unavailable Trickey, J Lizz PA Unavailable Unavailable Trickey, J Lizz PA Unavailable Unavailable Trickey, J Lizz PA Unavailable Unavailable Trickey, J Lizz PA Unavailable Unavailable Trickey, J Lizz PA Unavailable Unavailable Trickey, J Lizz PA Unavailable Unavailable Trickey, J Lizz PA Unavailable Unavailable Trickey, J Lizz PA Unavailable Unavailable Trickey, J Lizz PA Unavailable Unavailable Trickey, J Lizz PA Unavailable Unavailable Trickey, J Lizz PA Unavailable Unavailable Trickey, J Lizz PA Unavailable Unavailable Trickey, J Lizz PA Unavailable Unavailable Trickey, J Lizz PA Unavailable Unavailable Trickey, J Lizz PA Unavailable Unavailable Laurent, M Radha PA-C Unavailable Unavailable Laurent, M Radha PA-C Unavailable Unavailable Laurent, M Radha PA-C Unavailable Unavailable Laurent, M Radha PA-C Unavailable Unavailable Laurent, M Radha PA-C Unavailable Unavailable Laurent, M Radha PA-C Unavailable Unavailable Laurent, M Radha PA-C Unavailable Unavailable Laurent, M Radha PA-C Unavailable Unavailable Laurent, M Radha PA-C Unavailable Unavailable Laurent, M Radha PA-C Unavailable Unavailable Laurent, M Radha PA-C Unavailable Unavailable Laurent, M Radha PA-C Unavailable Unavailable Laurent, M Radha PA-C Unavailable Unavailable Laurent, M Radha PA-C Unavailable Unavailable Laurent, M Rahda PA-C Unavailable Unavailable Laurent, M Radha PA-C Unavailable Unavailable Laurent, M Radha PA-C Unavailable Unavailable Laurent, M Radha PA-C Unavailable Unavailable Laurent, M Radha PA-C Unavailable Unavailable Laurent, M Radha PA-C Unavailable Unavailable Laurent, M Radha PA-C Unavailable Unavailable Laurent, M Radha PA-C Unavailable Unavailable Laurent, M Radha PA-C Unavailable Unavailable Laurent, M Radha PA-C Unavailable Unavailable Laurent, M Radha PA-C Unavailable Unavailable Laurent, M Radha PA-C Unavailable Unavailable Laurent, M Radha PA-C Unavailable Unavailable Laurent, M Radha PA-C Unavailable Unavailable Laurent, M Radha PA-C Unavailable Unavailable Laurent, M Radha PA-C Unavailable Unavailable Laurent, M Radha PA-C Unavailable Unavailable Laurent, M Radha PA-C Unavailable Unavailable Laurent, M Radha PA-C Unavailable Unavailable Laurent, M Radha PA-C Unavailable Unavailable Laurent, M Radha PA-C Unavailable Unavailable Laurent, M Radha PA-C Unavailable Unavailable Diaz, L Janae RPA Unavailable Unavailable Diaz, L Janae RPA Unavailable Unavailable Diaz, L Jnaae RPA Unavailable Unavailable Diaz, L Janae RPA Unavailable Unavailable Diaz, L Janae RPA Unavailable Unavailable Diaz, L Janae RPA Unavailable Unavailable Diaz, L Janae RPA Unavailable Unavailable Diaz, L Janae RPA Unavailable Unavailable Diaz, L Janae RPA Unavailable Unavailable Diaz, L Janae RPA Unavailable Unavailable Diaz, L Janae RPA Unavailable Unavailable Diaz, L Janae RPA Unavailable Unavailable Diaz, L Janae RPA Unavailable Unavailable Diaz, L Janae RPA Unavailable Unavailable Diaz, L Janae RPA Unavailable Unavailable Diaz, L Janae RPA Unavailable Unavailable Diaz, L Janae RPA Unavailable Unavailable Diaz, L Janae RPA Unavailable Unavailable Diaz, L Janae RPA Unavailable Unavailable Diaz, L Janae RPA Unavailable Unavailable Diaz, L Janae RPA Unavailable Unavailable Diaz, L Janae RPA Unavailable Unavailable Diaz, L Janae RPA Unavailable Unavailable Diaz, L Janae RPA Unavailable Unavailable Diaz, L Janae RPA Unavailable Unavailable Diaz, L Janae RPA Unavailable Unavailable Diaz, L Janae RPA Unavailable Unavailable Diaz, L Janae RPA Unavailable Unavailable Diaz, L Janae RPA Unavailable Unavailable Diaz, L Janae RPA Unavailable Unavailable Diaz, L Janae RPA Unavailable Unavailable Diaz, L Janae RPA Unavailable Unavailable Jodie Desai JR, MD Unavailable Unavailable Jodie Desai JR, MD Unavailable Unavailable Jodie Desai JR, MD Unavailable Unavailable Jodie Desai JR, MD Unavailable Unavailable Jodie Desai JR, MD Unavailable Unavailable Jodie Desai JR, MD Unavailable Unavailable Jodie Desai JR, MD Unavailable Unavailable Jodie Desai JR, MD Unavailable Unavailable Jodie Desai JR, MD Unavailable Unavailable Jodie Desai JR, MD Unavailable Unavailable Jodie Desai JR, MD Unavailable Unavailable Jodie Desai JR, MD Unavailable Unavailable Jodie Desai JR, MD Unavailable Unavailable Jodie Desai JR, MD Unavailable Unavailable Jodie Desai JR, MD Unavailable Unavailable Jodie Desai JR, MD Unavailable Unavailable Jodie Desai JR, MD Unavailable Unavailable Jodie Desai JR, MD Unavailable Unavailable Jodie Desai JR, MD Unavailable Unavailable Jodie Desai JR, MD Unavailable Unavailable Jodie Desai JR, MD Unavailable Unavailable Jodie Desai JR, MD Unavailable Unavailable Jodie Desai JR, MD Unavailable Unavailable Jodie Desai JR, MD Unavailable Unavailable Jodie Desai JR, MD Unavailable Unavailable Jodie Desai JR, MD Unavailable Unavailable Jodie Desai JR, MD Unavailable Unavailable Jodie Desai JR, MD Unavailable Unavailable Jodie Desai JR, MD Unavailable Unavailable Jodie Desai JR, MD Unavailable Unavailable Jodie Desai JR, MD Unavailable Unavailable Jodie Desai JR, MD Unavailable Unavailable Jodie Desai JR, MD Unavailable Unavailable Jodie Desai JR, MD Unavailable Unavailable Jodie Desai JR, MD Unavailable Unavailable Jodie Desai JR, MD Unavailable Unavailable Jodie Desai JR, MD Unavailable Unavailable Jodie Desai JR, MD Unavailable Unavailable Jodie Desai JR, MD Unavailable Unavailable Jodie Desai JR, MD Unavailable Unavailable Jodie Desai JR, MD Unavailable Unavailable Jodie Desai JR, MD Unavailable Unavailable Jodie Desai JR, MD Unavailable Unavailable Jodie Desai JR, MD Unavailable Unavailable Jodie Desai JR, MD Unavailable Unavailable Jodie Desai JR, MD Unavailable Unavailable Jodie Desai JR, MD Unavailable Unavailable Jodie Desai JR, MD Unavailable Unavailable Jodie Desai JR, MD Unavailable Unavailable Jodie Desai JR, MD Unavailable Unavailable Jodie Desai JR, MD Unavailable Unavailable Jodie Desai JR, MD Unavailable Unavailable Jodie Desai JR, MD Unavailable Unavailable Jodie Desai JR, MD Unavailable Unavailable Dallin Chaudhari MD Unavailable Unavailable Chaudhari, Dallin Hoyt MD Unavailable Unavailable Chaudhari, Dallin Hoyt MD Unavailable Unavailable Chaudhari, Dallin Hoyt MD Unavailable Unavailable Chaudhari, Dallin Hoyt MD Unavailable Unavailable Chaudhari, Dallin Hoyt MD Unavailable Unavailable Chaudhari, Dallin Hoyt MD Unavailable Unavailable Chaudhari, Dallin Hoyt MD Unavailable Unavailable Chaudhari, Dallin Hoyt MD Unavailable Unavailable Chaudhari, Dallin Hoyt MD Unavailable Unavailable Chaudhari, Dallin Hoyt MD Unavailable Unavailable Chaudhari, Dallin Hoyt MD Unavailable Unavailable Chaudhari, Dallin Hoyt MD Unavailable Unavailable Chaudhari, Dallin Hoyt MD Unavailable Unavailable Chaudhari, Dallin Hoyt MD Unavailable Unavailable Chaudhari, Dallin Hoyt MD Unavailable Unavailable Chaudhari, Dallin Hoyt MD Unavailable Unavailable Chaudhari, Dallin Hoyt MD Unavailable Unavailable Chaudhari, Dallin Hoyt MD Unavailable Unavailable Chaudhari, Dallin Hoyt MD Unavailable Unavailable Chaudhari, Dallin Hoyt MD Unavailable Unavailable Chaudhari, Dallin Hoyt MD Unavailable Unavailable Chaudhari, Dallin Hoyt MD Unavailable Unavailable Chaudhari, Dallin Hoyt MD Unavailable Unavailable Chaudhari, Dallin Hoyt MD Unavailable Unavailable Chaudhari, Dallin Hoyt MD Unavailable Unavailable Chaudhari, Dallin Hoyt MD Unavailable Unavailable Chaudhari, Dallin Hoyt MD Unavailable Unavailable Chaudhari, Dallin Hoyt MD Unavailable Unavailable Chaudhari, Dallin Hoyt MD Unavailable Unavailable Chaudhari, Dallin Hoyt MD Unavailable Unavailable Chaudhari, Dallin Hoyt MD Unavailable Unavailable Chaudhari, Dallin Hoyt MD Unavailable Unavailable Chaudhari, Dallin Hoyt MD Unavailable Unavailable Chaudhari, Dallin Hoyt MD Unavailable Unavailable Chaudhari, Dallin Hoyt MD Unavailable Unavailable Chaudhari, Dallin Hoyt MD Unavailable Unavailable Chaudhari, Dallin Hoyt MD Unavailable Unavailable Chaudhari, Dallin Hoyt MD Unavailable Unavailable Chaudhari, Dallin Hoyt MD Unavailable Unavailable Chaudhari, Dallin Hoyt MD Unavailable Unavailable Chaudhari, Dallin Hoyt MD Unavailable Unavailable Chaudhari, Dallin Hoyt MD Unavailable Unavailable Chaudhari, Dallin Hoyt MD Unavailable Unavailable Chaudhari, Dallin Hoyt MD Unavailable Unavailable Chaudhari, Dallin Hoyt MD Unavailable Unavailable Chaudhari, Dallin Hoyt MD Unavailable Unavailable Chaudhari, Dallin Hoyt MD Unavailable Unavailable Chaudhari, Dallin Hoyt MD Unavailable Unavailable Chaudhari, Dallin Hoyt MD Unavailable Unavailable Chaudhari, Dallin Hoyt MD Unavailable Unavailable Chaudhari, Dallin Hoyt MD Unavailable Unavailable Chaudhari, Dallin Hoyt MD Unavailable Unavailable Chaudhari, Dallin Hoyt MD Unavailable Unavailable Re-disclosure Warning The records that you are about to access may contain information from federally-assisted alcohol or drug abuse programs. If such information is present, then the following federally mandated warning applies: This information has been disclosed to you from records protected by federal confidentiality rules (42 CFR part 2). The federal rules prohibit you from making any further disclosure of this information unless further disclosure is expressly permitted by the written consent of the person to whom it pertains or as otherwise permitted by 42 CFR part 2. A general authorization for the release of medical or other information is NOT sufficient for this purpose. The Federal rules restrict any use of the information to criminally investigate or prosecute any alcohol or drug abuse patient.The records that you are about to access may contain highly sensitive health information, the redisclosure of which is protected by Article 27-F of the [facility] Public Health law. If you continue you may have access to information: Regarding HIV / AIDS; Provided by facilities licensed or operated by the [facility] Office of Mental Health; or Provided by the [facility] Office for People With Developmental Disabilities. If such information is present, then the following [facility] mandated warning applies: This information has been disclosed to you from confidential records which are protected by state law. State law prohibits you from making any further disclosure of this information without the specific written consent of the person to whom it pertains, or as otherwise permitted by law. Any unauthorized further disclosure in violation of state law may result in a fine or assisted sentence or both. A general authorization for the release of medical or other information is NOT sufficient authorization for further disc losure. Family History Family Member Name Family Member Gender Family Member Status Date o f Status Description Data Source(s) Unknown Male Problem MEDENT ([facility], ) () Unknown Male Problem [facility] ([facility] () Encounters Encounter Providers Location Date Indications Data Source(s ) Outpatient Attender: Lai Eid/Narayan/Jacob/Andrade wen 02/14/2021 01:15:00 PM EDT MEDENT ([facility]) Unknown [address] [facility] [address] 02/02/2021 12:00:00 AM EDT eCW1 ([facility]) Office Visit, Est Pt., Level 4 [address] [place] [address] 01/25/2021 12:00:00 AM EDT eCW1 ([facility]) Outpatient Attender: Janae Eid/Narayan/Jacob/R behzad 12/21/2020 01:45:00 PM EDT MEDENT ([facility]) Outpatient Attender: Lizz MUSE Main office - [facility] 12/12/2020 10:30:00 AM EDT MEDENT ([facility], ) Outpatient Attender: YISSEL JERNIGAN SR 12/07/2020 08:00:00 AM [facility] Outpatient Attender: YISSEL JENRIGAN SR 11/08/2020 08:00:00 AM [facility] [place] [address] [facility] [address] 10/13/2020 12:00:00 AM EDT eCW1 ([facility]) Outpatient Attender: Radha Mancilla PA-C 10/06/2020 12:00 :00 PM [facility] [place] [address] [facility] [address] 09/23/2020 12:00:00 AM EDT eCW1 ([facility]) Outpatient Attender: Sandip Eid/Narayan/Jacob/Rein dl 09/19/2020 01:45:00 PM EDT [facility] Outpatient Attender: Radha Mancilla PA-C 08/30/2020 08:00 :00 AM [facility] Outpatient Attender: Lai Eid/Narayan/Jacob/R eindl 08/09/2020 01:00:00 PM EDT MEDENT ([facility], ) Outpatient Attender: Lizz MUSE Main [facility] 08/04/2020 10:00:00 AM EST MEDENT ([facility], ) Outpatient Attender: Radha Mancilla PA-C 08/02/2020 12:00 :00 PM [facility] [address] [facility] [address] 07/06/2020 12:00:00 AM EST eCW1 ([facility]) Outpatient Attender: Radha Mancilla PA-C 07/05/2020 08:00 :00 AM [facility] Outpatient Attender: Radha Bethder: YISSEL URBINA SR 06/06/2020 08:00:00 AM [facility] Admission cancelled. Disregard status an d admitted date. Outpatient Attender: Lizz MUSE Main office - [place] 05/12/2020 09:30:00 AM EST MEDENT ([facility]) Outpatient Attender: Radha MUSE-CAttender: YISSEL URBINA SR 05/05/2020 08:00:00 AM [facility] Outpatient Attender: Radha MUSE-CAttender: YISSEL URBINA SR 03/31/2020 09:00:00 AM [facility] Outpatient Attender: YISSEL JERNIGAN SR 03/04/2020 12:01:00 AM [facility] Outpatient Attender: Lizz MUSE Main office - [facility] 02/11/2020 10:30:00 AM EDT MEDENT ([facility]) Outpatient Attender: YISSEL JERNIGAN SR 02/08/2020 12:01:00 AM [facility] Outpatient Attender: YISSEL LAWACE SR 01/08/2020 12:01:00 AM [facility] Outpatient Attender: YISSEL LAWACE SR 11/25/2019 12:01:00 AM [facility] Immunizations Vaccine Date Status Description Data Source(s) COVID-19 VACCINE Moderna 03/06/2021 12:00:00 AM EDT completed [facility] Vaccine Series Complete: NOThis Data was Submitted to [facility] Via [facility]. COVID-19 dose #2 given elsewhere Unspecified 08/13/2020 01:5 4:00 PM EDT completed eCW1 ([facility]) COVID-19 dose #2 given elsewhere Unspecified 08/13/2020 01:5 4:00 PM EDT completed eCW1 ([facility]) COVID-19 dose #1 given elsewhere Unspecified 07/16/2020 01:5 3:00 PM EST completed eCW1 ([facility]) COVID-19 dose #1 given elsewhere Unspecified 07/16/2020 01:5 3:00 PM EST completed eCW1 ([facility]) Medications Medication Brand Name Start Date Product Form Dose Route Admi nistrative Instructions Pharmacy Instructions Status Indications Reaction Description Data Source(s) Polymyxin B 93115 UNT/ML / Trimethoprim 1 MG/ML Ophthalmic Solution 10,000 unit- 1 mg/mL POLYMYXIN B SULF/TRIMETHOPRIM 02/25/2021 12:00:00 AM EDT drops 1 0 INSTILL ONE DROP IN THE LEFT EYE FOUR TIMES A DAY , STARTING 3 DAYS PRIOR TO SURGERY INSTILL ONE DROP IN THE LEFT EYE FOUR TI MES A DAY , STARTING 3 DAYS PRIOR TO SURGERY SOLD: 03/02/2021 [facility] 0.5 % 02/25/2021 12:00:00 AM EDT drops 5 INSTILL ONE DROP IN THE LEFT EYE FOUR TIMES A DAY , STARTING 3 DAYS PRIOR TO SURGERY INSTILL ONE DROP IN THE LEFT EYE FOUR TIMES A DAY , STARTING 3 DAYS PRIOR TO SURGERY SOLD: 03/02/2021 [facility] 1 % 02/25/2021 12:00:00 AM EDT drops,suspension 10 INSTILL ONE DROP IN THE LEFT EYE FOUR TIMES A DAY , START 3 DAYS PRIOR TO SURGERY INSTILL ONE DROP IN THE LEFT EYE FOUR TIMES A DAY , START 3 DAYS PRIOR TO SURGERY SOLD: 03/02/2021 [facility] 0.2 % 02/03/2021 12:00:00 AM EDT drops 10 INSTILL 1 DROP IN THE RIGHT EYE TWO TIMES A DAY INSTILL 1 DROP IN THE RIGHT EYE TWO TIMES A DAY SOLD: 02/03/2021 [facility] Suprep Bowel Prep Kit Suprep Bowel Prep Kit 11/10/2020 12:00:00 AM EDT completed MEDENT ([facility], ) Doxycycline Monohydrate 100 MG Oral Tablet Doxycycline Monoh ydrate 100 MG 07/06/2020 12:00:00 AM EST 1.0 {tablet} active Doxycycline Monohydrate 100 MG eCW1 ([facility]) Doxycycline Monohydrate 100 MG Oral Tablet Doxycycline Monoh ydrate 100 MG 07/06/2020 12:00:00 AM EST 1.0 {tablet} active Doxycycline Monohydrate 100 MG eCW1 ([facility]) Doxycycline Monohydrate 100 MG Oral Tablet Doxycycline Monoh ydrate 100 MG 07/06/2020 12:00:00 AM EST 1.0 {tablet} active Doxycycline Monohydrate 100 MG eCW1 ([facility]) Insurance Providers Payer name Policy type / Coverage type Policy ID Covered republican ID Covered republican's relationship to thayer Policy Thayer Plan Information MEDICARE [id number] A MEDICARE A [id number] Self [id number] A MEDICARE [id number] SP [id number] FOR LIFE [id number] SP [id number] FOR LIFE [id number] SP [id number] FOR LIFE [id number] SP [id number] FOR LIFE [id number] SP [id number] FOR LIFE [id number] SP [id number] [employer]NA [employer] CLASS[employer] [id number] S [id number] [employer] G[employer] CLASSIC [id number] S [id number] ADMINISTRATION [id number] SP [id number] [facility] FEDERAL SERVICES [id number] S [id number] [facility] MEDICARE DIVISION [id number] S [id number] [place]IC[place] [id number] S [id number] [facility] MEDICARE DIVISION [id number] S [id number] [place]IC[place] [id number] S [id number] WEST O [id number] S [id number] WPS MV-VAPCCC [place] [id number] SP [id number] MEDICARE C [id number] S [id number] [place]/136E O [id number] S [id number] FOR LIFE O [id number] S [id number] ANSI-Commercial [id number] ANSI-Medicare Part B [id number] ANSI-Medicare Part B [id number] ANSI-Commercial [id number] ANSI-Medicare Part B [id number] ANSI-Commercial [id number] ANSI-Commercial [id number] ANSI-Medicare Part B [id number] ANSI-Commercial [id number] ANSI-Medicare Part B [id number] ANSI-Medicare Part B [id number] ANSI-Commercial [id number] For Life Medigap Part B [id number] Self [id number] Medicare Part B Medicare Primary [id number] Self [id number] WPS For Life Medigap Part B [id number] Self [id number] Medicare [place] Medicare Primary [id number] Self [id number] For Life Medigap Part B [id number] Self [id number] Medicare Part B Medicare Primary [id number] Self [id number] For Life Medigap Part B [id number] Self [id number] Medicare Part B Medicare Primary [id number] Self [id number] WPS For Life Medigap Part B [id number] Self 0 [id number] Medicare [place] Medicare Primary [id number] Self 0 [id number] For Life Medigap Part B [id number] Self [id number] Medicare Part B Medicare Primary [id number] Self [id number] For Life Reg 1 Medigap Part B [id number] Self [id number] Medicare - NGS Medicare Primary [id number] Self 0 [id number] MEDICARE C [id number] S [id number] A For Life Reg 1 Medigap Part B [id number] Self [id number] Medicare - [facility] Medicare Primary [id number] Self 0 [id number] For Life Medigap Part B [id number] Self [id number] Medicare Part B Medicare Primary [id number] Self [id number] FOR LIFE [id number] SP 0 [id number] MEDICARE [id number] SP [id number] A For Life Medigap Part B [id number] Self [id number] Medicare Part B Medicare Primary [id number] Self [id number] FOR LIFE [id number] SP 0 [id number] For Life Medigap Part B [id number] Self [id number] Medicare Part B Medicare Primary [id number] Self [id number] For Life Medigap Part B [id number] Self [id number] Medicare Part B Medicare Primary [id number] Self [id number] MEDICARE [id number] SP [id number] A Medicare Part B Medicare Primary [id number] Self For Life Commercial [id number] Self Medicare Medicare Primary [id number] Self N REGIONAL CLAIMS [facility] -CLINIC [id number] 18 [id number] MEDICARE PART A -CLINIC [id number] 18 [id number] HUMANA GOLD [id number] SP [id number] FOR LIFE [id number] SP [id number] HUMANA GOLD [id number] SP [id number] [facility] [id number] SP [id number] FOR LIFE [id number] SP [id number] HUMANA GOLD [id number] SP [id number] [facility] [id number] S [id number] FOR LIFE [id number] SP [id number] MEDICARE [id number] SP [id number] Problems, Conditions, and Diagnoses Code Display Name Description Problem Type Effective Dates Data Source(s) I10 Essential (primary) hypertension ESSENTIAL (PRIMARY) H YPERTENSION Diagnosis 12/07/2020 08:00:00 AM [facility] K21.9 Gastro-esophageal reflux disease without esophagitis GASTRO-ESOPHAGEAL REFLUX DISEASE WITHOUT ESOPHAGITIS Diagnosis 12/07/2020 08:00:00 AM [facility] Z86.79 [id number] History of coronary artery disease Proble m 01/25/2021 12:00:00 AM EDT eCW1 ([facility]) N18.4 [id number] CKD (chronic kidney disease) stage 4, GFR 15-29 ml/min Problem 01/25/2021 12:00:00 AM EDT eCW1 ([facility]) Z94.2 History of being lung transplant recipie nt Lung transplant status, bilateral Problem 01/24/2021 12:00:00 AM EDT eCW1 ([facility]) H25.11 [id number] Age-related nuclear cataract, right ey e Problem 01/24/2021 12:00:00 AM EDT eCW1 ([facility]) H93.13 [id number] Tinnitus of both ears Problem 11/03/2020 12:00:00 AM EDT eCW1 ([facility]) Surgeries/Procedures Procedure Description Date Indications Data Source(s) OFFICE OUTPATIENT VISIT 15 MINUTES 02/14/2021 12:00:00 AM EDT [facility] ([facility]) OFFICE OUTPATIENT VISIT 15 MINUTES 12/21/2020 12:00:00 AM EDT [facility] ([facility]) OFFICE OUTPATIENT VISIT 25 MINUTES 12/12/2020 12:00:00 AM EDT [facility] ([facility]) Colonoscopy W/ Poly 11/24/2020 12:00:00 AM EDT [facility] ([facility]) OFFICE OUTPATIENT VISIT 25 MINUTES 09/19/2020 12:00:00 AM EDT [facility] ([facility]) Bronchospasm Evaluation 08/26/2020 12:00:00 AM EDT [facility] ([facility]) Plethysmography Determination Lung Volumes & Per Airway Resi st 08/26/2020 12:00:00 AM EDT [facility] ([facility]) DIFFUSING CAPACITY 08/26/2020 12:00:00 AM EDT [facility] ([facility]) Measure Blood Oxygen Level Continuous Overnight Monitor 08/19/2020 12:00:00 AM EDT [facility] ([facility]) OFFICE OUTPATIENT VISIT 25 MINUTES 08/09/2020 12:00:00 AM EDT [facility] ([facility]) OFFICE OUTPATIENT VISIT 15 MINUTES 08/04/2020 12:00:00 AM EST [facility] ([facility]) Results ID Date Data Source [id number] 02/01/2021 09:15:00 AM EDT [facility] Name Value Range Interpretation Code Description Data Angelica rce(s) Supporting Document(s) SARS-CoV-2 (COVID-19) RNA [Presence] in Respiratory specimen by VALERIE with probe detection Not Detected [facility] This lab was ordered by [facility] and reported by [employer] ID Date Data Source [id number] 11/24/2020 08:40:00 AM EDT [facility] ([facility]) Name Value Range Interpretation Code Description Data Angelica rce(s) Supporting Document(s) Surgical pathology study Laboratory test result [facility] ([facility]) FINAL DIAGNOSIS A--Colon polyps, polypectomy: Tubular adenoma,fragments. [...] aggregate. All in one. -OA 11/25/2020 - 1236 Signed GANGA VARGAS MD 11/25/2020 1237 Procedure Social History Code Duration Value Status Description Data Source(s ) Smoking 02/14/2021 12:00:00 AM EDT Patient is a former smoker completed Patient is a former smoker [facility] ([facility]) Smoking 01/25/2021 12:00:00 AM EDT Former Smoker completed Former Smoker eCW1 ([facility]) Smoking 01/25/2021 12:00:00 AM EDT Former Smoker completed Former Smoker eCW1 ([facility]) Smoking 07/06/2020 12:00:00 AM EST Former Smoker completed Former Smoker eCW1 ([facility]) Smoking 07/06/2020 12:00:00 AM EST Former Smoker completed Former Smoker eCW1 ([facility]) Smoking 07/06/2020 12:00:00 AM EST Former Smoker completed Former Smoker eCW1 ([facility]) Vital Signs ID Date Data Source UNK Name Value Range Interpretation Code Description Data Source(s) [place] body weight 154 [lb_av] 154 [lb_av] MATT Garner ([facility]) Body weight 77.112 kg 77.112 kg [facility] ([facility]) Body surface area Derived from formula 1.91 m2 1.91 m2 [facility] Systolic blood pressure 124 mm[Hg] 124 mm[Hg] [facility] Diastolic blood pressure 70 mm[Hg] 70 mm[Hg] [facility] ([facility]) Heart rate 77 /min 77 /min [facility] ([facility]) Oxygen saturation in Arterial blood by Pulse oximetry 94 % 94 % [facility] ([facility]) Room Air Body height 68 [in_i] 68 [in_i] [facility] ([facility]) 5'8" Body weight 170.00 [lb_av] 170.00 [lb_av] MEDEN T ([facility]) Body mass index (BMI) [Ratio] 25.8 kg/m2 25.8 k g/m2 [facility] ([facility]) Body weight 180.4 [lb_av] 180.4 [lb_av] W1 ([facility]) Body weight 81.83 kg 81.83 kg W1 ([facility]) Body height 68 [in_i] 68 [in_i] eCW1 ([facility]) Body mass index (BMI) [Ratio] 27.43 kg/m2 27.43 kg/m2 W1 ([facility]) Heart rate 85 /min 85 /min W1 ([facility]) Respiratory rate 18 /min 18 /min W1 ([facility]) Body temperature 99.2 [degF] 99.2 [degF] eCW1 ( [facility]) Systolic blood pressure 142 mm[Hg] 142 mm[Hg] e CW1 ([facility]) Diastolic blood pressure 82 mm[Hg] 82 mm[Hg] eCW1 ([facility]) Diastolic blood pressure 72 mm[Hg] 72 mm[Hg] [facility] ([facility]) Body temperature 98.7 [degF] 98.7 [degF] [facility] ([facility]) Body height 68 [in_i] 68 [in_i] [facility] ([facility]) 5'8" Body weight 80.741 kg 80.741 kg [facility] ([facility]) Body surface area Derived from formula 1.94 m2 1.94 m2 [facility] ([facility]) Systolic blood pressure 120 mm[Hg] 120 mm[Hg] [facility] Body weight 178.00 [lb_av] 178.00 [lb_av] MEDEN T ([facility]) Body mass index (BMI) [Ratio] 27.1 kg/m2 27.1 k g/m2 [facility] ([facility]) [place] body weight 154 [lb_av] 154 [lb_av] MEDEN T ([facility]) Systolic blood pressure 140 mm[Hg] 140 mm[Hg] [facility] ([facility]) Diastolic blood pressure 80 mm[Hg] 80 mm[Hg] [facility] ([facility]) Heart rate 68 /min 68 /min [facility] ([facility]) Respiratory rate 20 /min 20 /min [facility] ( [facility]) Body weight 184.00 [lb_av] 184.00 [lb_av] MEDEN T ([facility]) Body weight 83.462 kg 83.462 kg [facility] ([facility]) Body surface area Derived from formula 1.97 m2 1.97 m2 [facility] ([facility]) Body mass index (BMI) [Ratio] 28.0 kg/m2 28.0 k g/m2 [facility] ([facility]) [place] body weight 154 [lb_av] 154 [lb_av] MEDEN T ([facility]) Body height 68 [in_i] 68 [in_i] [facility] ([facility]) 5'8" Systolic blood pressure 130 mm[Hg] 130 mm[Hg] [facility] Body weight 184.00 [lb_av] 184.00 [lb_av] MEDEN T ([facility]) Body mass index (BMI) [Ratio] 28.0 kg/m2 28.0 k g/m2 [facility] ([facility]) [place] body weight 154 [lb_av] 154 [lb_av] MEDEN T ([facility]) Body weight 83.462 kg 83.462 kg [facility] ([facility]) Body surface area Derived from formula 1.97 m2 1.97 m2 [facility] ([facility]) Diastolic blood pressure 69 mm[Hg] 69 mm[Hg] [facility] ([facility]) Heart rate 89 /min 89 /min [facility] ([facility]) Body height 68 [in_i] 68 [in_i] [facility] ([facility]) 5'8" Systolic blood pressure 116 mm[Hg] 116 mm[Hg] M EDENT ([facility]) Diastolic blood pressure 70 mm[Hg] 70 mm[Hg] [facility] ([facility]) Heart rate 87 /min 87 /min [facility] ([facility]) Body height 68 [in_i] 68 [in_i] [facility] ([facility]) 5'8" Body weight 185.00 [lb_av] 185.00 [lb_av] MEDEN T ([facility]) Body mass index (BMI) [Ratio] 28.1 kg/m2 28.1 k g/m2 [facility] ([facility]) [place] body weight 154 [lb_av] 154 [lb_av] [facility]) Oxygen saturation in Arterial blood by Pulse oximetry 97 % 97 % [facility] ([facility]) Room Air Body weight 83.916 kg 83.916 kg [facility] ([facility]) Body surface area Derived from formula 1.98 m2 1.98 m2 [facility] ([facility]) Body height 68 [in_i] 68 [in_i] eCW1 ([facility]) Body mass index (BMI) [Ratio] 27.97 kg/m2 27.97 kg/m2 W1 ([facility]) Heart rate 82 /min 82 /min eCW1 ([facility]) Respiratory rate 18 /min 18 /min eCW1 ([facility]) Body temperature 99.2 [degF] 99.2 [degF] eCW1 ( [facility]) Systolic blood pressure 140 mm[Hg] 140 mm[Hg] e CW1 ([facility]) Diastolic blood pressure 82 mm[Hg] 82 mm[Hg] eCW1 ([facility]) Body weight 184 [lb_av] 184 [lb_av] eCW1 ([facility]) Systolic blood pressure 140 mm[Hg] 140 mm[Hg] M EDENT ([facility]) Diastolic blood pressure 80 mm[Hg] 80 mm[Hg] [facility] ([facility]) Heart rate 76 /min 76 /min [facility] ([facility]) Respiratory rate 16 /min 16 /min [facility] ( [facility]) Systolic blood pressure 140 mm[Hg] 140 mm[Hg] [facility] Diastolic blood pressure 70 mm[Hg] 70 mm[Hg] [facility] ([facility]) Heart rate 92 /min 92 /min [facility] ([facility]) Oxygen saturation in Arterial blood by Pulse oximetry 99 % 99 % [facility] ([facility]) Room Air Body height 68 [in_i] 68 [in_i] [facility] ([facility]) 5'8" Body weight 183.00 [lb_av] 183.00 [lb_av] [facility]) Body mass index (BMI) [Ratio] 27.8 kg/m2 27.8 k g/m2 [facility] ([facility]) [place] body weight 154 [lb_av] 154 [lb_av] [facility] ([facility]) Body weight 83.009 kg 83.009 kg [facility] ([facility]) Body surface area Derived from formula 1.97 m2 1.97 m2 [facility] ([facility]) Patient Treatment Plan of Care Planned Activity Planned Date Details Description Data Source (s) Doxycycline Monohydrate 100 MG Oral Tablet 07/06/2020 12:00:[address] eCW1 ([facility]) Doxycycline Monohydrate 100 MG Oral Tablet 07/06/2020 12:00:[address] eCW1 ([facility]) Doxycycline Monohydrate 100 MG Oral Tablet 07/06/2020 12:00:[address] eCW1 ([facility])
--- OUTSIDE RECORDS SUMMARY | 2021-03-17 08:00 | CCD | Continuity of Care Document ---
Author Author Gerald MCGRAW PA Organization Unknown Address [address], [address] [place] [address] Phone [phone] Care Team Providers [employer] Officer Name Role Phone Jane, Annelise Smith R.N. AUTM [phone] Lucina Burgess M.D. AUTM [phone] Problems Active Problems Provider Date History of [...] PPD FOR 40 YEARS Smoking Status Reviewed: 08/09/20 Patient is a former smoker QU IT 2007 - SMOKED 1-4 PPD FOR 40 YEARS Allergies, Adverse Reactions, Alerts Active Allergies Reaction Severity Comments Date IVP Dye hives 09/12/2017 Oxycodone dizziness 09/12/2017 Sulfamethoxazole / Trimethoprim dark urine,listless 05/08/2011 Iodinated Diagnostic Agents Urticaria 12/26/2010 Levaquin dizzy, light headed 05/13/20 19 Medications Active Medications SIG Qnty Indications Ordering Provide r Date Suprep Bowel Prep Kit 17.5-3.13-1.6GM/177ML Solution take per doctor's bowel prep instructions. 354ml Sandip Desai JR, MD 11/10/2020 Mycophenolate Mofetil 250mg Capsules 1 qd Unknown Multivitamin Adult Tablets 1 qd Unknown Loperamide HCL 2mg Capsules take 1 capsule 1-2 times a day for severe diarrhea (only take when having diarrhea) Unknown Esomeprazole Magnesium 40mg Capsul es DR 1 by mouth 2 X every day Unknown 0 Ipratropium [place] 0.02% Solution 1 vial via neb four times a day prn Unknown Bactrim DS 800-160mg Tablets 1 tab by mouth twice a day Unknown Tadalafil 5mg Tablets 1 qd Unknown Vitamin D (Ergocalciferol) 1.25mg (60577 Ut) Capsules 1 Q Week Unknown Propranolol HCL 40mg Tablets 1 tid Unknown Lidocaine 5% Patches as Neede d Unknown Magnesium Oxide (Elemental) 400mg Tablets 1 qd Unknown Neupogen 300mcg/ML Solution Every 2 Weeks Unknown Folic Acid 1mg Tablets one tablet by mouth every day after meals Unknown Gabapentin 100mg Capsules 1 by mouth 2 times a day Unknown Montelukast Sodium 10mg Tablets 1 by mouth every day Unknown Allergy Relief Loratadine 10mg Tab lets 1 qd Unknown Albuterol Sulfate (2 .5mg/3ML) 0.083% Nebulizer 1 vial four times a day as needed Unknown Pantoprazole Sodium 40mg Tablets D R 1 by mouth every day Unknown Aspir-[address] 1 by mouth every day Unknown Valcyte 450mg Tablets 1 tab by mouth twice a day Unknown Zofran 4mg Tablets 1 by mo [facility] as needed Unknown Prograf 0.5mg Capsules 1 tab by mouth 2 X everyday Unknown Metoprolol Succinate ER 25mg Tablets ER 24HR 1 by mouth every day every morning Unknow n Atorvastatin Calcium 10mg Tablets 1 by mouth every day Unknown Lasix 20mg Tablets 2 b y mouth every day 3tabs Unknown Combivent Respimat 20-100mcg/Act A erosol One Inhalation Four Times A Day as Needed 12units Rosalinda Chaudhari MD Immunizations CPT Code Status Date Vaccine Lot # 35518 Given 04/18/2016 Influenza Virus Split 3 Yrs And Above For Intramuscular Use 21393 Given 03/21/2016 Influenza Virus Split 3 Yrs And Above For Intramuscular Use 95383 Given 04/01/2014 Influenza Virus Split 3 Yrs And Above For Intramuscular Use Q2036 Given 04/21/2012 Influenza Vaccine 3 Years Of Age Or Older (Flulaval) 86466 Given Unknown Pneumococcal PPSV23 73989 Given Unknown Influenza Virus Split 3 Yrs And Above For Intramuscular Use Q2036 Refused 05/08/2011 Influenza Vaccine 3 Years Of Age Or Older (Flulaval) Vital Signs Date Vital Result Comment 12/21/2020 1:49pm BP Systolic 120 mmHg BP Diastolic 72 mmHg Body Temperature 98.7 F Height 68 inches 5'8" Weight 178.00 lb BMI (Body Mass Index) 27.1 kg/m2 [place] Body Weight 154 lb Weight 80.741 kg BSA (Body Surface Area) 1.94 m2 09/19/2020 2:13pm BP Systolic 130 mmHg BP Diastolic 69 mmHg Heart Rate 89 /min Height 68 inches 5'8" Weight 184.00 lb BMI (Body Mass Index) 28.0 kg/m2 [place] Body Weight 154 lb Weight 83.462 kg BSA (Body Surface Area) 1.97 m2 Results Test Acquired Date Facility Test Result H/L Range Note Laboratory test finding 11/24/2020 [facility] Main Lab [address] [place] [address] [phone] Pathology Request For Service (SEE NOTE) 1 [...] 11/25/2020 1237 Procedures Date Code Description Status 11/24/2020 29045 Colonoscopy W/ Poly Completed 09/19/2020 73849 Office/Outpatient Established Mo d MDM 30-39 Min Completed 08/26/2020 36907 Diffusing Capacity Completed 08/26/2020 39478 Plethysmography Determination Kayla ng Volumes & Per Airway Resist Completed 08/26/2020 16618 Bronchospasm Evaluation Complete d 08/19/2020 35102 Measure Blood Oxygen Level Doc nuous Overnight Monitor Completed 08/09/2020 10149 Office/Outpatient Established Mo d MDM 30-39 Min Completed Medical Devices Description No Information Available Encounters Type Date Location Provider Dx Diagnosis Office Visit 09/19/2020 1:45p [facility] Practice Sandip mora JR, MD K62.5 Hemorrhage of anus and rectum Z86.010 Personal history of colonic polyps Office Visit 08/09/2020 1:00p [facility] Pulmonary/Thoracic Lawrjude Chaudhari MD Z94.2 Lung transplant status R40.0 Somnolence Z79.52 assisted (current) use of s ystemic steroids Z79.899 Other fdc (current) dr mock therapy Assessments Date Code Description Provider 11/24/2020 D12.6 Benign neoplasm of colon, unspec [...] Lab 08/19/2020 R40.0 Somnolence Nocturnal Oximet ry 08/09/2020 Z94.2 Lung transplant status Lai Chaudhari MD 08/09/2020 R40.0 Somnolence Lai Chaudhari MD 08/09/2020 Z79.52 assisted (current) use of syste cristina steroids Lai Chaudhari MD 08/09/2020 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.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 Lai Chaudhari MD Plan of Treatment Future Appointment(s):* 02/14/2021 1:15 pm - Lai Chaudhari MD at [facility] Pulmonary/Thoracic 09/19/2020 - Sandip Desai JR, MD* K62.5 Hemorrhage of anus and rectum* Comments:* Patient has had some rectal bleeding of undetermined etiology however this seems to be bright red blood per rectum and is probably associated with some hemorrhoids but easily could be a rectal polyp causing some pain symptoms at this point I do recommend proceeding with a colonoscopy for him and in addition I made some recommendations concerning treatment for hemorrhoids locally and he understands will contact our office if he has ongoing problems with bleeding or concerns but otherwise we've asked him to try to manage his bowels to have soft stools without constipation without diarrhea and to manage his medications as needed for this. * Z86.010 Personal history of colonic polyps* Comments:* Patient has had a personal history of colonic polyps and at this point the recommendation is to proceed with a repeat colonoscopy risks as well as benefits have been discussed with him at length those including but not limited to bleeding i nfection damage to bowel including perforation and possibly anesthetic complications. Patient understands as well that small lesions/polyps can be missed with increased frequency and is much dependent on colonic prep. The patient agrees to proceed with colonoscopy as recommended. Functional Status Description No Information Available Mental Status Description No Information Available Referrals Description No Information Available
--- OUTSIDE RECORDS SUMMARY | 2021-03-17 08:00 | CCD | Continuity of Care Document ---
Author Author Gerald MCGRAW PA Organization Unknown Address [address], [address] [place] [address] Phone [phone] Care Team Providers Care Clinical Data Programmer Name Role Phone Jnae, Annelise Smith R.N. AUTM [phone] Lucina Burgess M.D. AUTM [phone] Problems Active Problems Provider Date History of [...] 2 X every day Unknown 0 Ipratropium [place] 0.02% Solution 1 vial via neb four times a day prn Unknown Bactrim DS 800-160mg Tablets 1 tab by mouth twice a day Unknown Tadalafil 5mg Tablets 1 qd Unknown Vitamin D (Ergocalciferol) 1.25mg (49860 Ut) Capsules 1 Q Week Unknown Propranolol [...] Unknown Zofran 4mg Tablets 1 by [facility] as needed Unknown Prograf 0.5mg Capsules 1 [...] CPT Code Status Date Vaccine Lot # 17512 Given 04/18/2016 Influenza Virus Split 3 Yrs And Above For Intramuscular Use 38094 Given 03/21/2016 Influenza Virus Split 3 Yrs And Above For Intramuscular Use 73930 Given 04/01/2014 Influenza Virus Split 3 Yrs And Above For Intramuscular Use Q2036 Given 04/21/2012 Influenza Vaccine 3 Years Of Age Or Older (Flulaval) 12863 Given Unknown Pneumococcal PPSV23 50225 Given Unknown Influenza Virus Split 3 Yrs And Above For Intramuscular Use Q2036 Refused 05/08/2011 Influenza Vaccine 3 Years Of Age Or Older (Flulaval) Vital Signs Date Vital Result Comment 12/21/2020 1:49pm BP Systolic 120 mmHg BP Diastolic 72 mmHg Body Temperature 98.7 F Height 68 inches 5'8" Weight 178.00 lb BMI (Body Mass Index) 27.1 kg/m2 [place] Body Weight 154 lb Weight 80.741 kg BSA (Body Surface Area) 1.94 m2 09/19/2020 2:13pm BP Systolic 130 mmHg BP Diastolic 69 mmHg Heart Rate 89 /min Height 68 inches 5'8" Weight 184.00 lb BMI (Body Mass Index) 28.0 kg/m2 [place] Body Weight 154 lb Weight 83.462 kg BSA (Body Surface Area) 1.97 m2 Results Test Acquired Date Facility Test Result H/L Range Note Laboratory test finding 11/24/2020 [facility] [address] [place] [address] [phone] Pathology Request For Service (SEE NOTE) 1 [...] 1237 Procedures Date Code Description Status 12/21/2020 09313 Office/Outpatient Established Lo w MDM 20-29 Min Completed 11/24/2020 80664 Colonoscopy W/ Poly Completed 09/19/2020 81107 Office/Outpatient Established Mo d MDM 30-39 Min Completed 08/26/2020 34695 Diffusing Capacity Completed 08/26/2020 47315 Plethysmography Determination Kayla ng Volumes & Per Airway Resist Completed 08/26/2020 89697 Bronchospasm Evaluation Complete d 08/19/2020 64391 Measure Blood Oxygen Level Doc nuous Overnight Monitor Completed 08/09/2020 21589 Office/Outpatient Established Mo d MDM 30-39 Min Completed Medical Devices Description No Information Available Encounters Type Date Location Provider Dx Diagnosis Office Visit 12/21/2020 1:45p [facility] MICHA Hernadez D12.6 Benign neoplasm of colon, unspecified D12.8 Benign neoplasm of rectum Office Visit 09/19/2020 1:45p [facility] Sandip mora JR, MD K62.5 Hemorrhage of anus and rectum Z86.010 Personal history of colonic polyps Office Visit 08/09/2020 1:00p [facility] Shila Chaudhari MD Z94.2 Lung transplant status R40.0 Somnolence Z79.52 halfway (current) use of s ystemic steroids Z79.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 Assessments Date Code Description Provider 12/21/2020 D12.6 Benign neoplasm of colon, unspec [...] R40.0 Somnolence Lai Chaudhari MD 08/09/2020 Z79.52 halfway (current) use of syste cristina steroids Lai Chaudhari MD 08/09/2020 Z79.899 Other detention (current) drug t herapy Lai Chaudhari MD Plan of Treatment Future Appointment(s):* 02/14/2021 1:15 pm - Lai Chaudhari MD at [facility] 12/21/2020 - MICHA Morin* D12.6 Benign neoplasm of colon, unspecified * D12.8 Benign neoplasm of rectum Functional Status Description No Information Available Mental Status Description No Information Available Referrals Description No Information Available
[2021-03-17] MEDS: PHENYLEPHRINE 2.5% OPHTH SOL 2ML OS SCH ×2 (09:04→09:09)
[2021-03-17] MEDS: OFLOXACIN 0.3 % (OCUFLOX) OPTH SOL 5ML OS SCH ×2 (09:04→09:09)
[2021-03-17] MEDS: TROPICAMIDE 1% OPHTH SOLN 2ML OS SCH ×2 (09:04→09:09)
[2021-03-17 10:30] VITALS: BP 154/75
--- NOTE | 2021-03-17 13:51 | ROOPDOC ---
[facility] Report Of Operation Report of Operation PREPROCEDURE DIAGNOSES: Mature cataract left eye. POSTPROCEDURE DIAGNOSES: Same. PROCEDURE PERFORMED: Phacoemulsification cataract extraction implantation intraocular lens left eye. SURGEON: Atif Nickerson MD LEATHER CRAFTSMAN: None ANESTHESIA: MAC. ESTIMATED BLOOD LOSS: Approximately 0 cc mL. COMPLICATIONS: None. LENS: 21.5. diopters SPECIMENS REMOVED: None INDICATIONS: Patient experienced decreased vision associated with cataract formation. Slit-lamp examination confirmed the diagnosis. Informed consent was obtained for removal of the cataract and placement of intraocular lens. PROCEDURE NOTE: Patient was identified in the holding room and the operative eye was marked. Patient was wheeled spine the OR suite and positioned on the stretcher. The lids lashes and periocular face of the operative eye were prepped with 5% povidone iodine. The lashes were taped with a Tegaderm dressing. A speculum was placed in the operative eye. 1 mm side-port was created. 1% preservative-free lidocaine was injected. Viscoat was injected. A 2.6 mm stepped groove clear cornea incision was made temporally. A bent cystotome needle and Utrata forceps were used to fashion a continuous cu rvilinear capsulorhexis. BSS was used to hydrodissect. The lens was found to rotate freely. The lens was phacoemulsified using a divide and conquer technique. Residual cortex was removed with the I/A. Provisc was injected to expand the capsular bag. The lens was injected using the lens delivery system and positioned with a Curt hook. Residual viscoelastic was removed with the I/A. BSS was used to hydrate the corneal wound. Antibiotic prophylaxis was injected. The speculum was removed from the eye. A shield was taped over the eye. The patient was sent in excellent condition to the recovery room with a shield. ATIF NICKERSON M.D. Mar 17, 2021 13:51
== END 2021-03-17 10:35 | disposition home or self-care (01) ==
LOC: M SDC 07:56
PROVIDERS: ATTEND Ophthalmology
DX: H25.89 Other age-related cataract (principal); Z94.2 Lung transplant status; K21.9 Gastro-esophageal reflux disease without esophagitis; N18.4 Chronic kidney disease, stage 4 (severe); I25.10 Atherosclerotic heart disease of native coronary artery without angina pectoris; Z95.1 Presence of aortocoronary bypass graft; J44.9 Chronic obstructive pulmonary disease, unspecified; M19.90 Unspecified osteoarthritis, unspecified site; Z85.118 Personal history of other malignant neoplasm of bronchus and lung; M54.2 Cervicalgia; I69.392 Facial weakness following cerebral infarction; I27.20 Pulmonary hypertension, unspecified; G47.8 Other sleep disorders; N40.0 Benign prostatic hyperplasia without lower urinary tract symptoms; Z92.21 Personal history of antineoplastic chemotherapy; Z87.891 Personal history of nicotine dependence; Z79.899 Other long term (current) drug therapy; Z79.82 Long term (current) use of aspirin; Z79.2 Long term (current) use of antibiotics; Z91.52 Personal history of nonsuicidal self-harm; Z91.041 Radiographic dye allergy status; Z88.1 Allergy status to other antibiotic agents; Z88.5 Allergy status to narcotic agent
CPT/HCPCS: 66984; J1097; J2250; J3010; V2632

== ENCOUNTER → 2021-09-06 | Outpatient (REF) | payer OTHER ==
[~2021-09-06] MED LIST changes: -BSS IRR 500ML/OMIDRIA 4ML IRR BAG (OR ONLY) As Ordered ONE; -CEFUROXIME 1MG/0.1ML INTRACAMERAL INJ As Ordered ONE; -DUOVISC (0.50ML VISCOAT/0.85ML PROVISC) OPHTH KIT As Ordered ONE; +LOSA25TA13 PO; -LOSA25TA14 PO; -MIDAZOLAM INJ 2MG/2ML VIAL (J2250 PER 1MG) As Ordered ONE; -PHENYLEPHRINE 1.5%/LIDOCAINE 1% INTRAOCULAR 0.8ML SYRINGE As Ordered ONE; -PROPARACAINE 0.5% OPHTH SOL 15ML OS ONE; -fentaNYL 100 MCG/2 ML INJECTION (J3010) As Ordered ONE
== END ==
LOC: M SFHCPLAZ 16:56
PROVIDERS: ATTEND Physician Assistant
DX: R05.9 Cough, unspecified (principal)

== ENCOUNTER → 2022-01-05 | Outpatient (CLI) | payer OTHER ==
[~2022-01-05] MED LIST changes: +ALBU2.5V10 INH; -ALBU83IN INH; +LEVO1TAB40 PO; -LEVO750T13 PO
[2022-01-05 13:36] LABS: APPEARANCE, URINE MANUAL CLEAR (CLEAR); BILIRUBIN, URINE MANUAL NEGATIVE (NEGATIVE); COLOR, URINE MANUAL YELLOW (YELLOW); GLUCOSE, URINE (UA) MANUAL NEGATIVE (NEGATIVE); KETONE, URINE MANUAL NEGATIVE (NEGATIVE); NITRITE, URINE MANUAL NEGATIVE (NEGATIVE); PROTEIN, URINE MANUAL NEGATIVE (NEGATIVE); UROBILINOGEN, URINE MANUAL NORMAL (NORMAL)
[2022-01-05 13:37] LABS: BLOOD URINE MANUAL NEGATIVE (NEGATIVE); LEUKOCYTE ESTERASE, URINE MAN POSITIVE (NEGATIVE)
[2022-01-05 13:53] LABS: BASO % 0.3 % (0.0-1.0); EOS # 0.1 10^3/uL (0.0-0.5); EOS % 0.8 % (0.0-3.0); HEMATOCRIT 35.5 % (42.0-52.0); LYMPH # 1.3 10^3/uL (1.5-5.0); LYMPH % 12.4 % (24.0-44.0); MEAN CORPUSCULAR HEMOGLOBIN 29.3 pg (27.0-33.0); MEAN CORPUSCULAR VOLUME 94.7 fl (80.0-96.0); MONO # 1.1 10^3/uL (0.0-0.8); NEUTROPHILS # 7.6 10^3/uL (1.5-8.5); NEUTROPHILS % 74.2 % (36.0-66.0); PLATELET COUNT, AUTOMATED 250 10^3/uL (150-450); RED BLOOD COUNT 3.75 10^6/uL (4.30-6.10); WHITE BLOOD COUNT 10.2 10^3/uL (4.0-10.0)
[2022-01-05 13:53] LABS: BACTERIA, URINE NONE SEEN; MUCUS, URINE SMALL AMOUNT (NEGATIVE); RBC, URINE NONE SEEN /hpf (0-3); SQUAMOUS EPITHELIAL CELL URINE SMALL AMOUNT /hpf (SMALL AMT)
[2022-01-05 14:32] LABS: ALBUMIN 3.6 GM/DL (3.2-5.2); CALCIUM LEVEL 8.8 MG/DL (8.8-10.2); CREATININE FOR GFR 2.32 MG/DL (0.70-1.30); GLOMERULAR FILTRATION RATE 29.5 (>42); PHOSPHORUS LEVEL 3.7 MG/DL (2.5-4.9); POTASSIUM SERUM 5.1 MEQ/L (3.5-5.1)
== END ==
LOC: M PLALAB 11:50
PROVIDERS: ATTEND Nurse Practitioner Family
DX: R10.9 Unspecified abdominal pain (principal)

== ENCOUNTER → 2022-05-15 | Outpatient (CLI) | payer OTHER ==
[~2022-05-15] MED LIST changes: -VALG1TAB PO; +VALG450T10 PO
== END ==
LOC: M LABSMTC 11:37
PROVIDERS: ATTEND Family Medicine
DX: Z11.52 Encounter for screening for COVID-19 (principal)
CPT/HCPCS: 87635; C9803

== ENCOUNTER → 2022-08-06 | Outpatient (CLI) | payer OTHER ==
[~2022-08-06] MED LIST changes: +MONT-5 PO; +PRIM50TA6 PO; -SING10TA32 PO
== END ==
LOC: M LABSMTC 10:46
PROVIDERS: ATTEND Anesthesiology
DX: Z01.812 Encounter for preprocedural laboratory examination (principal); Z11.52 Encounter for screening for COVID-19

== ENCOUNTER 2022-08-07 11:55 | Outpatient (CLI) | payer OTHER ==
[2022-08-07] MEDS ORDERED: LIDOCAINE 2% 100MG/5ML SDV (FOR ANES.) ONE (11:56)
[2022-08-07] MEDS ORDERED: propofoL 200 MG/20 ML VIAL ONE (11:56)
[2022-08-07 14:15] VITALS: BP 165/79
== END 2022-08-07 14:19 | disposition home or self-care (01) ==
LOC: M SDC 11:55
PROVIDERS: ATTEND Physician Assistant
DX: M50.121 Cervical disc disorder at C4-C5 level with radiculopathy (principal); M50.122 Cervical disc disorder at C5-C6 level with radiculopathy; M89.38 Hypertrophy of bone, other site

== ENCOUNTER 2022-08-29 03:38 | Emergency (ER) | payer OTHER ==
[2022-08-29 04:33] LABS: BASO % 0.1 % (0.0-1.0); EOS # 0.2 10^3/uL (0.0-0.5); EOS % 2.2 % (0.0-3.0); HEMATOCRIT 31.8 % (42.0-52.0); HEMOGLOBIN 9.9 g/dl (13.5-17.5); LYMPH # 1.4 10^3/uL (1.5-5.0); LYMPH % 15.3 % (24.0-44.0); MEAN CORPUSCULAR HEMOGLOBIN 29.2 pg (27.0-33.0); MEAN CORPUSCULAR HGB CONC 31.1 g/dl (32.0-36.5); MEAN CORPUSCULAR VOLUME 93.8 fl (80.0-96.0); MONO # 0.8 10^3/uL (0.0-0.8); MONO % 8.8 % (2.0-8.0); NEUTROPHILS # 6.8 10^3/uL (1.5-8.5); NEUTROPHILS % 73.1 % (36.0-66.0); PLATELET COUNT, AUTOMATED 256 10^3/uL (150-450); RED BLOOD COUNT 3.39 10^6/uL (4.30-6.10); WHITE BLOOD COUNT 9.4 10^3/uL (4.0-10.0)
[2022-08-29 04:56] LABS: CK-MB VALUE MASS < 1.0 NG/ML (<3.6)
[2022-08-29 04:58] LABS: CPK CREATINE PHOSPHOKINASE 43 U/L (46-171); MB/CK RELATIVE INDEX 2.32 (< OR =4)
[2022-08-29] MEDS ORDERED: ALBUTEROL SULFATE 2.5MG/0.5ML INH NEB SOLN NEB ONE (05:00)
[2022-08-29 05:05] LABS: BLOOD UREA NITROGEN 35 MG/DL (9-23); CALCIUM LEVEL 8.3 MG/DL (8.3-10.6); CARBON DIOXIDE LEVEL 24 MMOL/L (20-31); CHLORIDE LEVEL 106 MMOL/L (98-107); CREATININE FOR GFR 1.97 MG/DL (0.70-1.30); GLOMERULAR FILTRATION RATE 35.7 (>42); GLUCOSE, FASTING 89 MG/DL (74-106); POTASSIUM SERUM 4.4 MMOL/L (3.5-5.1); SODIUM LEVEL 137 MMOL/L (136-145)
[2022-08-29 08:15] VITALS: BP 160/71
== END 2022-08-29 08:44 | disposition home or self-care (01) ==
LOC: M ED 03:38
DX: R05.9 Cough, unspecified (principal); I27.20 Pulmonary hypertension, unspecified; Z95.5 Presence of coronary angioplasty implant and graft; I25.10 Atherosclerotic heart disease of native coronary artery without angina pectoris; K80.20 Calculus of gallbladder without cholecystitis without obstruction; Z88.5 Allergy status to narcotic agent; Z88.8 Allergy status to other drugs, medicaments and biological substances; Z91.048 Other nonmedicinal substance allergy status; Z79.82 Long term (current) use of aspirin; Z79.51 Long term (current) use of inhaled steroids; Z79.899 Other long term (current) drug therapy
CPT/HCPCS: 36415; 69209; 71046; 71250; 80048; 82550; 82553; 83605; 83880; 84484; 85025; 87040; 87486; 87581; 87633; 87798; 93005; 93041; 94640; 94760; 99285; G0463

== ENCOUNTER → 2022-10-08 | Outpatient (REF) | payer OTHER | LOC: M SFHCPLAZ 17:21 → EEVIPCON 17:21 | PROVIDERS: ATTEND Physician Assistant | DX: R39.9 Unspecified symptoms and signs involving the genitourinary system (principal) ==

== ENCOUNTER → 2022-10-12 | Outpatient (REF) | payer OTHER | LOC: M SFHCPLAZ 17:02 | PROVIDERS: ATTEND Physician Assistant | DX: N39.0 Urinary tract infection, site not specified (principal); B96.29 Other Escherichia coli [E. coli] as the cause of diseases classified elsewhere ==

== ENCOUNTER → 2022-12-19 | Outpatient (CLI) | payer OTHER ==
[2022-12-19 17:32] LABS: BASO % 0.2 % (0.0-1.0); EOS # 0.1 10^3/uL (0.0-0.5); EOS % 1.2 % (0.0-3.0); HEMATOCRIT 30.1 % (42.0-52.0); HEMOGLOBIN 9.1 g/dl (13.5-17.5); LYMPH # 1.3 10^3/uL (1.5-5.0); LYMPH % 15.4 % (24.0-44.0); MEAN CORPUSCULAR HEMOGLOBIN 27.5 pg (27.0-33.0); MEAN CORPUSCULAR HGB CONC 30.2 g/dl (32.0-36.5); MEAN CORPUSCULAR VOLUME 90.9 fl (80.0-96.0); MONO # 0.6 10^3/uL (0.0-0.8); MONO % 7.3 % (2.0-8.0); NEUTROPHILS # 6.3 10^3/uL (1.5-8.5); NEUTROPHILS % 75.5 % (36.0-66.0); PLATELET COUNT, AUTOMATED 254 10^3/uL (150-450); RED BLOOD COUNT 3.31 10^6/uL (4.30-6.10); WHITE BLOOD COUNT 8.3 10^3/uL (4.0-10.0)
== END ==
LOC: M PLALAB 14:56
PROVIDERS: ATTEND Physician Assistant
DX: S62.115A Nondisplaced fracture of triquetrum [cuneiform] bone, left wrist, initial encounter for closed fracture (principal); W18.30XA Fall on same level, unspecified, initial encounter; Y92.009 Unspecified place in unspecified non-institutional (private) residence as the place of occurrence of the external cause

== ENCOUNTER → 2023-03-07 | Outpatient (CLI) | payer OTHER ==
[~2023-03-07] MED LIST changes: -GABA-283 PO; +GABA-284 PO
[2023-03-07 15:59] LABS: BASO % 0.1 % (0.0-1.0); EOS # 0.1 10^3/uL (0.0-0.5); EOS % 0.9 % (0.0-3.0); HEMATOCRIT 31.7 % (42.0-52.0); LYMPH # 1.2 10^3/uL (1.5-5.0); LYMPH % 11.5 % (24.0-44.0); MEAN CORPUSCULAR HEMOGLOBIN 29.3 pg (27.0-33.0); MEAN CORPUSCULAR HGB CONC 31.5 g/dl (32.0-36.5); MONO # 0.8 10^3/uL (0.0-0.8); MONO % 7.5 % (2.0-8.0); NEUTROPHILS # 8.4 10^3/uL (1.5-8.5); NEUTROPHILS % 79.4 % (36.0-66.0); PLATELET COUNT, AUTOMATED 239 10^3/uL (150-450); RED BLOOD COUNT 3.41 10^6/uL (4.30-6.10); WHITE BLOOD COUNT 10.6 10^3/uL (4.0-10.0)
[2023-03-07 16:16] LABS: ERYTHROCYTE SEDIMENTATION RATE 118 mm/hr (0-20)
== END ==
LOC: M PLALAB 13:15
PROVIDERS: ATTEND Physician Assistant
DX: S62.114A Nondisplaced fracture of triquetrum [cuneiform] bone, right wrist, initial encounter for closed fracture (principal); W18.30XA Fall on same level, unspecified, initial encounter

== ENCOUNTER → 2023-08-09 | Outpatient (REF) | payer OTHER | LOC: M SFHCPLAZ 16:52 | PROVIDERS: ATTEND Physician Assistant | DX: R36.9 Urethral discharge, unspecified (principal) ==

== ENCOUNTER → 2023-08-23 | Outpatient (CLI) | payer OTHER | LOC: M PLAIMG 11:27 | PROVIDERS: ATTEND Internal Medicine Pulmonary Disease | DX: Z94.2 Lung transplant status (principal); R05.9 Cough, unspecified ==

== ENCOUNTER → 2023-09-16 | Outpatient (CLI) | payer OTHER | LOC: M PLAIMG 10:59 | PROVIDERS: ATTEND Internal Medicine Pulmonary Disease | DX: Z94.2 Lung transplant status (principal); R05.9 Cough, unspecified ==

== ENCOUNTER 2023-12-08 15:30 | Emergency (ER) | payer OTHER ==
[~2023-12-08] VITALS: Ht 170.2 cm; Wt 77.1 kg
[~2023-12-08 15:30] MED LIST changes: +TRAM-443 PO; -TRAM37.53 PO
[2023-12-08 19:29] VITALS: BP 157/82; TEMP 97.6; O2SAT 99
== END 2023-12-08 19:26 | disposition home or self-care (01) ==
LOC: M ED 15:30
DX: J00 Acute nasopharyngitis [common cold] (principal); I10 Essential (primary) hypertension; E78.5 Hyperlipidemia, unspecified; K21.9 Gastro-esophageal reflux disease without esophagitis; J44.9 Chronic obstructive pulmonary disease, unspecified; Z88.5 Allergy status to narcotic agent; Z88.8 Allergy status to other drugs, medicaments and biological substances; Z91.041 Radiographic dye allergy status; Z79.1 Long term (current) use of non-steroidal anti-inflammatories (NSAID); Z79.51 Long term (current) use of inhaled steroids; Z79.2 Long term (current) use of antibiotics; Z79.810 Long term (current) use of selective estrogen receptor modulators (SERMs); Z79.52 Long term (current) use of systemic steroids; Z79.899 Other long term (current) drug therapy

== ENCOUNTER 2023-12-16 09:40 | Emergency (ER) | payer OTHER ==
[~2023-12-16] VITALS: Ht 170.2 cm; Wt 75.8 kg
[2023-12-16] MEDS: NYSTATIN 500,000U/5ML SUSP UDC PO STA (12:45)
[2023-12-16] MEDS ORDERED: NYST-38 PO (12:49)
[2023-12-16 13:24] VITALS: BP 188/84; TEMP 100.7; O2SAT 97
== END 2023-12-16 13:52 | disposition home or self-care (01) ==
LOC: M ED 09:40
DX: B37.0 Candidal stomatitis (principal); B37.81 Candidal esophagitis; E78.5 Hyperlipidemia, unspecified; K21.9 Gastro-esophageal reflux disease without esophagitis; N18.4 Chronic kidney disease, stage 4 (severe); Z88.1 Allergy status to other antibiotic agents; Z88.5 Allergy status to narcotic agent; Z91.041 Radiographic dye allergy status; Z79.1 Long term (current) use of non-steroidal anti-inflammatories (NSAID); Z79.51 Long term (current) use of inhaled steroids; Z79.2 Long term (current) use of antibiotics; Z79.810 Long term (current) use of selective estrogen receptor modulators (SERMs); Z79.52 Long term (current) use of systemic steroids; Z79.899 Other long term (current) drug therapy

== ENCOUNTER 2024-01-27 19:28 | Emergency (ER) | payer OTHER ==
[~2024-01-27] VITALS: Ht 170.2 cm; Wt 75.4 kg
[~2024-01-27 19:28] MED LIST changes: +NYST-38 PO; -TRAM-443 PO; +TRAM1TAB42 PO
[2024-01-27 20:19] LABS: BASO % 0.2 % (0.0-1.0); EOS # 0.2 10^3/uL (0.0-0.5); EOS % 1.8 % (0.0-3.0); HEMATOCRIT 28.6 % (42.0-52.0); HEMOGLOBIN 9.1 g/dl (13.5-17.5); LYMPH # 1.6 10^3/uL (1.5-5.0); LYMPH % 19.4 % (24.0-44.0); MEAN CORPUSCULAR HEMOGLOBIN 29.4 pg (27.0-33.0); MEAN CORPUSCULAR HGB CONC 31.8 g/dl (32.0-36.5); MEAN CORPUSCULAR VOLUME 92.3 fl (80.0-96.0); MONO # 0.7 10^3/uL (0.0-0.8); NEUTROPHILS # 5.8 10^3/uL (1.5-8.5); NEUTROPHILS % 70.2 % (36.0-66.0); PLATELET COUNT, AUTOMATED 238 10^3/uL (150-450); WHITE BLOOD COUNT 8.3 10^3/uL (4.0-10.0)
[2024-01-27 20:20] LABS: APPEARANCE, URINE CLOUDY (CLEAR); BACTERIA, URINE AUTO 2+ (NEGATIVE); BILIRUBIN, URINE AUTO NEGATIVE (NEGATIVE); BLOOD, URINE BLOOD NEGATIVE (NEGATIVE); COLOR, URINE YELLOW (YELLOW); GLUCOSE, URINE (UA) AUTO 2+ mg/dL (NEGATIVE); KETONE, URINE AUTO NEGATIVE (NEGATIVE); LEUKOCYTE ESTERASE, URINE AUTO 3+ (NEGATIVE); MUCUS, URINE SMALL (NEGATIVE); NITRITE, URINE AUTO NEGATIVE (NEGATIVE); PROTEIN, URINE AUTO 1+ mg/dL (NEGATIVE); RBC, URINE AUTO 4 /HPF (0-3); SPECIFIC GRAVITY URINE AUTO 1.014 (1.002-1.035); SQUAMOUS EPITHELIAL CELL UR AU 0 /HPF (0-6); UROBILINOGEN, URINE AUTO 0.2 mg/dL (0.0-2.0); WBC, URINE AUTO TNTC /HPF (0-3)
[2024-01-27 20:50] LABS: ALBUMIN 3.4 G/DL (3.2-5.2); ALKALINE PHOSPHATASE 84 U/L (46-116); ALT/SGPT 10 U/L (7.0-40); AST/SGOT 12 U/L (<34); BILIRUBIN,DIRECT < 0.1 MG/DL (<0.4); BILIRUBIN,TOTAL 0.2 MG/DL (0.3-1.2); BLOOD UREA NITROGEN 37 MG/DL (9-23); CALCIUM LEVEL 8.6 MG/DL (8.3-10.6); CARBON DIOXIDE LEVEL 24 MMOL/L (20-31); CHLORIDE LEVEL 102 MMOL/L (98-107); CREATININE FOR GFR 2.35 MG/DL (0.70-1.30); GLOMERULAR FILTRATION RATE 28.9 (>42); GLUCOSE, FASTING 128 MG/DL (74-106); POTASSIUM SERUM 4.7 MMOL/L (3.5-5.1); SODIUM LEVEL 132 MMOL/L (136-145); TOTAL PROTEIN 6.6 G/DL (5.7-8.2)
[2024-01-28] MEDS ORDERED: CEFA500C2 PO (00:28)
[2024-01-28] MEDS: cefTRIAXone SOD 1GM VIAL IM ONE (00:33)
[2024-01-28] MEDS: LIDOCAINE 1% SDV 5ML VIAL DILUENT ONE (00:33)
[2024-01-28 00:34] VITALS: BP 149/72; TEMP 97.3; O2SAT 99
[2024-01-29] MEDS ORDERED: NITR100C3 PO (10:41)
[2024-01-29] MEDS ORDERED: FOSF3PAC2 PO (10:45)
== END 2024-01-28 00:39 | disposition home or self-care (01) ==
LOC: M ED 19:28
DX: N39.0 Urinary tract infection, site not specified (principal); K21.9 Gastro-esophageal reflux disease without esophagitis; N18.4 Chronic kidney disease, stage 4 (severe); F10.10 Alcohol abuse, uncomplicated; Z88.5 Allergy status to narcotic agent; Z91.041 Radiographic dye allergy status; Z79.1 Long term (current) use of non-steroidal anti-inflammatories (NSAID); Z79.51 Long term (current) use of inhaled steroids; Z79.810 Long term (current) use of selective estrogen receptor modulators (SERMs); Z79.52 Long term (current) use of systemic steroids; Z79.899 Other long term (current) drug therapy
CPT/HCPCS: 74176; 80048; 80076; 81001; 85025; 87088; 87184; 87186; 93005; 96372; 99284; J0696

== ENCOUNTER → 2024-02-04 | Outpatient (CLI) | payer OTHER ==
[~2024-02-04] MED LIST changes: +CEFA500C2 PO; +FOSF3PAC2 PO; +NITR100C3 PO
[2024-02-05 10:14] LABS: HEMATOCRIT 30.2 % (42.0-52.0); HEMOGLOBIN 9.7 g/dl (13.5-17.5); MEAN CORPUSCULAR HEMOGLOBIN 29.8 pg (27.0-33.0); MEAN CORPUSCULAR HGB CONC 32.1 g/dl (32.0-36.5); MEAN CORPUSCULAR VOLUME 92.6 fl (80.0-96.0); PLATELET COUNT, AUTOMATED 305 10^3/uL (150-450); RED BLOOD COUNT 3.26 10^6/uL (4.30-6.10); WHITE BLOOD COUNT 9.5 10^3/uL (4.0-10.0)
[2024-02-05 10:46] LABS: ALBUMIN 3.7 G/DL (3.2-5.2); ALKALINE PHOSPHATASE 90 U/L (46-116); ALT/SGPT 13 U/L (7.0-40); AST/SGOT 13 U/L (<34); BILIRUBIN,TOTAL < 0.2 MG/DL (0.3-1.2); BLOOD UREA NITROGEN 43 MG/DL (9-23); CARBON DIOXIDE LEVEL 25 MMOL/L (20-31); CHLORIDE LEVEL 106 MMOL/L (98-107); CREATININE FOR GFR 2.42 MG/DL (0.70-1.30); GLUCOSE, FASTING 120 MG/DL (74-106); IRON (FE) 58 UG/DL (65-175); PERCENT SATURATION 16.2 % (19.7-50.0); POTASSIUM SERUM 5.7 MMOL/L (3.5-5.1); SODIUM LEVEL 135 MMOL/L (136-145); TOTAL IRON BINDING CAPACITY 358 UG/DL (250-425)
[2024-02-05 10:47] LABS: FERRITIN 11.6 NG/ML (10.5-307.3)
== END ==
LOC: M PLALAB 16:41
PROVIDERS: ATTEND Nurse Practitioner Adult Health
DX: D50.9 Iron deficiency anemia, unspecified (principal); M85.80 Other specified disorders of bone density and structure, unspecified site

== ENCOUNTER → 2024-08-07 | Outpatient (REF) | payer OTHER ==
[~2024-08-07] MED LIST changes: -ADV250INH INH; +ADVA1AER9 INH
[2024-08-07 14:11] LABS: BASO % 0.2 % (0.0-1.0); EOS # 0.2 10^3/uL (0.0-0.5); EOS % 1.8 % (0.0-3.0); HEMATOCRIT 33.2 % (42.0-52.0); HEMOGLOBIN 10.3 g/dl (13.5-17.5); LYMPH # 1.2 10^3/uL (1.5-5.0); LYMPH % 12.8 % (24.0-44.0); MEAN CORPUSCULAR HEMOGLOBIN 30.8 pg (27.0-33.0); MEAN CORPUSCULAR VOLUME 99.4 fl (80.0-96.0); MONO # 0.5 10^3/uL (0.0-0.8); MONO % 5.9 % (2.0-8.0); NEUTROPHILS # 7.1 10^3/uL (1.5-8.5); NEUTROPHILS % 79.1 % (36.0-66.0); PLATELET COUNT, AUTOMATED 239 10^3/uL (150-450); RED BLOOD COUNT 3.34 10^6/uL (4.30-6.10)
[2024-08-07 14:12] LABS: ALBUMIN 3.7 G/DL (3.2-5.2); BILIRUBIN,TOTAL 0.4 MG/DL (0.3-1.2); CALCIUM LEVEL 8.5 MG/DL (8.3-10.6); CREATININE FOR GFR 2.61 MG/DL (0.70-1.30); GLOMERULAR FILTRATION RATE 25.6 (>42); POTASSIUM SERUM 5.8 MMOL/L (3.5-5.1)
== END ==
LOC: M SFHCPLAZ 09:50
PROVIDERS: ATTEND Family Medicine
DX: Z01.810 Encounter for preprocedural cardiovascular examination (principal)

== ENCOUNTER → 2024-08-24 | Outpatient (REF) | payer OTHER | LOC: M SFHCPLAZ 16:52 | PROVIDERS: ATTEND Family Medicine | DX: Z01.810 Encounter for preprocedural cardiovascular examination (principal); N39.0 Urinary tract infection, site not specified ==

== ENCOUNTER → 2024-09-16 | Outpatient (REF) | payer OTHER | LOC: M LAB REF 14:56 | DX: R30.0 Dysuria (principal) ==

== ENCOUNTER → 2024-10-22 | Outpatient (REF) | payer OTHER ==
[~2024-10-22] MED LIST changes: -ASPI-310 PO; +ASPI-730 PO
== END ==
LOC: M SFHCPLAZ 15:09 → M SMT 15:09
DX: R39.9 Unspecified symptoms and signs involving the genitourinary system (principal)

== ENCOUNTER → 2025-03-08 | Outpatient (CLI) | payer OTHER | LOC: M WHC 13:56 | DX: N63.23 Unspecified lump in the left breast, lower outer quadrant (principal) | CPT/HCPCS: 77066; G0279 ==